=== PATIENT | female | born 1940 | race Caucasian/White ===

== ENCOUNTER 2021-03-13 09:31 | Outpatient (CLI) | payer MEDICARE, SELFPAY ==
--- NOTE | ~2021-03-13 | MR_ITS ---
EXAMINATION: MR knee LT wo con DATE: 03/13/2021 10:18 INDICATION: Internal derangement of the left knee with left knee pain. TECHNIQUE: Magnetic resonance imaging (MRI) of the left knee was performed without intravenous contra st. Sequences included coronal PD-weighted FSE, coronal PD-weighted FS FSE, sagittal T2-weighted FSE , sagittal PD-weighted FS FSE and axial PD weighted fat saturated FSE. COMPARISON: Knee radiographs dated 02/24/2021 FINDINGS: Medial compartment: Full-thickness radial tear at the body of the medial meniscus. Partial-thickness chondral ulceration and fissuring at the medial tibial plateau and along the weightbearing medial femoral condyle. There are few small foci of underlying subarticular edema at the anterior weightbearing medial femoral cond yle as well as along the medial side of the intercondylar eminence. Small marginal osteophytes are pr esent. Lateral compartment: Lateral meniscus is normal. Deep chondral fissuring at the central aspect of the lateral tibial plate au. Small region of deep chondral ulceration along the lateral side of the intercondylar eminence. Sh allow chondral ulceration and fissuring along the anterior weightbearing lateral femoral condyle. Patellofemoral compartment: Partial-thickness chondral ulceration at the patellar apical ridge and lateral facet. Additional shal low chondral ulceration along the course of the medial and lateral trochlea and intervening trochlear groove. Moderate-sized trochlear marginal osteophytes. Large marginal osteophyte arising from the lo wer pole of the patella which abuts and in contour to the articular surface of the trochlea. Ligaments and tendons: Marked thickening and mild increased signal of the anterior cruciate ligament particularly proximally but which maintains a normal angle relative to Blumensaat line and with no frankly discontinuous wit h Lexiscan ligament fibers most likely related to mucoid degeneration although partial tear cannot be excluded. There is also at least partial tear of the posterior cruciate ligament which is mildly thi ckened with increased intrasubstance signal. The medial collateral ligament and fibular collateral li gament complex are normal. Patellar tendon is normal. Minimal distal quadriceps tendinopathy with sma ll enthesophyte at its patellar insertion. The visualized medial and lateral hamstring tendons as wel l as the iliotibial band are normal. Fluid: Small left knee joint effusion. There is synovitis both at the suprapatellar pouch as well as at the anterior and posterior recesses of the knee. No loose osteochondral bodies identified. Osseous/other: No fracture or pathologic marrow replacing process. IMPRESSION: 1. Full-thickness radial tear of the body of the medial meniscus. 2. Tricompartmental osteoarthritis, mild to moderate in the medial compartment and mild in the latera l and patellofemoral compartments with moderate to high-grade chondromalacia as detailed above. 3. Prominent thickening and increased signal of the anterior cruciate ligament cyst with mucoid degen eration although could not absolutely exclude partial tear. 4. At least partial tear of the posterior cruciate ligament. Reviewed, dictated and finalized at location A. IMPRESSION: 1. Full-thickness radial tear of the body of the medial meniscus. 2. Tricompartmental osteoarthritis, mild to moderate in the medial compartment and mild in the lateral and patellofemoral compartments with moderate to high-g rade chondromalacia as detailed above. 3. Prominent thickening and increased signal of the anterior cruciate ligament cyst with mucoid degeneration although could not absolutely exclude partial tea r. 4. At least partial tear of the posterior cruciate lig
== END 2021-03-13 09:32 | disposition home or self-care (01) ==
PROVIDERS: PCP Family Medicine; Referring Provider Anesthesiology; Visit Provider Orthopaedic Surgery
DX: M17.12 Unilateral primary osteoarthritis, left knee (principal); E78.5 Hyperlipidemia, unspecified; Z01.818 Encounter for other preprocedural examination; S83.242D Other tear of medial meniscus, current injury, left knee, subsequent encounter; X58.XXXD Exposure to other specified factors, subsequent encounter
CPT/HCPCS: 73721

== ENCOUNTER 2021-03-13 13:48 | Outpatient (CLI) | payer MEDICARE, SELFPAY ==
--- NOTE | 2021-03-13 13:59 | ECG_ITS ---
Measurements Intervals [place] Rate: 83 P: 64 PA: 131 QRS: 16 QRSD: 73 T: 49 QT: 363 QTc: 428 Interpretive Statements SINUS RHYTHM INCOMPLETE RIGHT BUNDLE BRANCH BLOCK DELAYED PRECORDIAL R/S TRANSITION BASELINE ARTIFACT- I, II, III, AVR, AVF BORDERLINE ECG Electronically Signed On 03-13-2021 21:05:56 CDT by Arnulfo Torre D.O.
== END 2021-03-13 13:49 | disposition home or self-care (01) ==
PROVIDERS: PCP Family Medicine; Visit Provider Orthopaedic Surgery
DX: E78.5 Hyperlipidemia, unspecified (principal); Z01.818 Encounter for other preprocedural examination; I45.10 Unspecified right bundle-branch block
CPT/HCPCS: 73721; 93005

== ENCOUNTER → 2021-03-18 01:11 | Outpatient (CLI) | payer MEDICARE, SELFPAY ==
[2021-03-18 17:56] LABS: SARS-CoV-2 RNA PCR Negative
== END ==
PROVIDERS: PCP Family Medicine; Visit Provider Orthopaedic Surgery
DX: Z01.812 Encounter for preprocedural laboratory examination (principal); Z20.822 Contact with and (suspected) exposure to COVID-19
CPT/HCPCS: C9803; U0003; U0005

== ENCOUNTER 2021-03-21 02:25 | Day surgery (SDC) | payer MEDICARE, SELFPAY ==
[2021-03-10 12:48] VITALS: BMI 23.0
[2021-03-21] VITALS (7 sets, daily range): BP systolic 119–150; BP diastolic 53–66; PULSE 86–110; RESP 10–14; TEMP 36.3–36.8; O2SAT 99–100
[2021-03-21] MEDS: ACETAMINOPHEN 500 MG TABLET 1000 MG PO (11:53)
[2021-03-21] MEDS: LACTATED RINGERS 1,000 ML 30 ML IV CONT ×2 (12:01→14:49)
[2021-03-21] MEDS: KETOROLAC 15 MG/ML VIAL (*BKC) IV PUSH (12:07)
--- NOTE | 2021-03-21 12:52 | WPDANESEPPF ---
Anes - Initial Pre Proc Eval Procedure: Operation Date: 03/21/21 13:30 Proposed Procedures p Left Knee Arthroscopic Partial Medial Meniscectomy - Enio Castillo MD Date/Time: 03/21/21 12:52 Surgeon: Enio Castillo MD Pre Op Diagnosis: internal derangement and locking left knee Patient Data Age: 80 Gender: F Height: 1.5 m Weight: 51.6 kg Last Vital Signs Temp 36.8 C 03/21/21 12:10 Pulse 110 H 03/21/21 12:10 BP 150/53 H 03/21/21 12:10 Pulse Ox 99 03/21/21 12:10 Allergies Allergy/AdvReac Type Severity Reaction Status Date / Time cortisone Allergy Unknown KNEE Verified 03/21/21 11:46 SWELLING WITH CORTISONE INJECTIONS Sulfa (Sulfonamide Allergy Unknown Unknown Verified 03/21/21 12:15 Antibiotics) Home Medications Medication Instructions Recorded Confirmed Type levothyroxine 75 mcg capsule 75 mcg PO DAILY 02/16/21 03/21/21 History simvastatin 40 mg tablet 40 mg PO DAILY 02/16/21 03/21/21 History cholecalciferol (vitamin D3) 25 mcg PO DAILY 03/10/21 03/21/21 History cyanocobalamin (vitamin B-12) 100 mcg PO DAILY 03/10/21 03/21/21 History Patient hx anesthesia problems: none Family hx anesthesia problems: none PMFSH Past Medical History Medical History (Updated 03/20/21 @ 09:33 by Sukhjinder Daniels DO) Arthritis of left knee Hyperlipidemia Hypothyroidism Surgical History Surgical History (Updated 02/21/21 @ 11:54 by Meryl Sierra) History of carpal tunnel surgery (~2002) History of lateral meniscus repair of left knee (~2005) Family History Family History (Updated 02/16/21 @ 09:39 by Diana Tovar, RT(R)) Father Diabetes mellitus Heart disease Other Cancer Social History Social History (Updated 03/21/21 @ 12:52 by Sukhjinder Daniels DO) Smoking status: Never smoker Alcohol intake: current Drinks per week: 7 Alcohol use details: 1 drink daily Living arrangements: alone Spiritual care concerns: No Anes - Eval Final PreProcedure Day of Procedure 03/21/21 12:52 Patient weight: normal Heart: regular rate and rhythm Lungs: clear to auscultation and normal air movement Airway: Mallampati scale class II Neurological: alert and oriented Last oral intake: >/= 8 hours ASA classification: III Emergent: no Anesthetic plan: proceed Anesthesia type and monitoring: general LMA and standard monitoring Informed Consent: The patient's anesthetic plan and its attendant risks and benefits were discussed with the patient/family/POA. Questions were solicited and answers provided to the satisfaction of the patient/family/POA.
--- NOTE | 2021-03-21 12:53 | WPDHPUPDATE1 ---
History and Physical Update Update Date/Time: 03/21/21 12:53 History and Physical has been reviewed, including an updated exam of the patient. There are NO changes in the patient's condition. Risks, benefits, and alternatives have been discussed and questions answered. Patient agrees to proceed with procedure.
[2021-03-21] MEDS: ceFAZolin 2 GM/D5W 50 ML 2 GM/50 ML BAG IVPB (12:58)
[2021-03-21] MEDS: BUPIVACAINE/EPINEPHRINE 0.5% 30 ML VIAL 50 ML INFILTRATE (13:35)
--- NOTE | 2021-03-21 14:46 | SUR.PHASEI ---
Simple mask removed at 1439.
[2021-03-21] MEDS: ONDANSETRON INJ 4 MG/2 ML VIAL IV PUSH (14:53)
--- NOTE | 2021-03-21 14:57 | W.PM.PROC2 ---
Procedure Note - Detailed Date of Procedure 03/21/21 Pre-op Diagnosis internal derangement and locking left knee Post-op Diagnosis other ( 1. Complex medial meniscus tear 2. Lateral meniscus tear 3. Degenerative arthritis 4. Knee contracture with capsulitis) Procedure Performed 1. Arthroscopic partial medial and lateral meniscectomy 2. Arthroscopic cheilectomy, inferior pole patella 3. Arthroscopic partial synovectomy Surgeon Enio Castillo MD [employer] Sorter Beth Randall PA-C Anesthesia general Indications the patient complained of intermittent pain and inability to flex the knee past 60? over the past several months. States that previously she was doing well with more natural range of motion. History of arthroscopic meniscectomy many years ago. Findings Significant split complex tear of the posterior medial meniscus. Moderate tricompartmental degenerative changes. Significant anterior horn lateral meniscus tear and central tibial chondrosis. Significant scarring in the inferior patella area the anterior joint capsule. This was excised. Large inferior patella osteophyte debrided. Patella was more mobile and was inspected at this point. There was a moderate to severe synovitis. There were no other loose bodies or abnormalities. The quad extensor mechanism appeared to be quite tight; after debridement, flexion was obtained to approximately 95?. Description of Procedure The patient was identified and the surgical site confirmed and signed in the preoperative holding area. Antibiotics were started per protocol. She was brought to the operative room and transferred to the OR table. A general anesthetic was administered. Supine position with the operative lower extremity position in the leg gamboa after placement of a well padded tourniquet. The leg support was lowered and the contralateral limb was supported with a soft bolster. The knee was prepped and draped in the usual sterile fashion. A time-out was performed. The portal sites were marked and infiltrated with 0.5% Marcaine 20 mL. The limb was exsanguinated and the tourniquet inflated to 300 mL Hg. Standard inferolateral and inferomedial portals were established. Inflow was obtained with the saline pump. The camera was introduced. Diagnostic inspection of the joint was accomplished. These show the joint was quite tight. Due to the inferior osteophyte was difficult to enter the patellofemoral space. There was scarring in the retropatellar fat pad area. This appeared to be secondary to prior surgery. Excision of this tissue was accomplished. The meniscus was visualized and debrided both medially and laterally. The lateral anterior horn was quite degenerative and torn. Some of the fibers from the ACL as well as the lateral meniscus appeared to be impinging at the anterolateral joint line. After this debridement the knee was more flexible. However, the knee remained quite stiff. The inferior osteophyte on the patella was removed with the combination of the arthroscopic shaver and the punches. At this point visualization of the patellofemoral joint was facilitated significantly. There was synovitis but no loose bodies or other evidence of any lesion accountable for her contracture. Radiofrequency Wand was also used to assist in the debridement and stabilization of loose tissues. The arthroscopic instruments were removed. The tourniquet released and wounds closed with subcutaneous 3-0 Monocryl absorbable suture. Steri strips and a sterile dressing were applied. A light elastic wrap was placed. The patient was extubated and brought to the recovery room in stable condition. Estimated Blood Loss -10.0 Pathology none sent Complications No immediate complications Condition stable Disposition PACU
== END 2021-03-21 16:01 | disposition home or self-care (01) ==
PROVIDERS: PCP Family Medicine; Visit Provider Orthopaedic Surgery
PROC: (CPT 29870; principal; 2021-03-21 13:30)
DX: M23.332 Other meniscus derangements, other medial meniscus, left knee (principal); M23.342 Other meniscus derangements, anterior horn of lateral meniscus, left knee; M65.862 Other synovitis and tenosynovitis, left lower leg; M25.762 Osteophyte, left knee; M76.892 Other specified enthesopathies of left lower limb, excluding foot; M17.12 Unilateral primary osteoarthritis, left knee; E78.5 Hyperlipidemia, unspecified; E03.9 Hypothyroidism, unspecified
CPT/HCPCS: 29880; A9270; C9803; J0690; J1885; J2370; J2405; J2704; J7120; U0003; U0005

== ENCOUNTER 2021-05-26 15:15 | Emergency (ER) | payer MEDICARE, SELFPAY ==
--- NOTE | 2021-05-26 15:21 | ED.ARRPALP ---
HPI - Arrhythmia/Palpitations General Chief Complaint: Arrhythmia/Palpitations Stated Complaint: RAPID HEART RATE Time Seen by Provider: 05/26/21 15:21 Source: patient, family and RN notes reviewed History of Present Illness HPI narrative: Patient is a 80-year-old female who presents the urgent care with her [id number] with complaints of palpitations/arrhythmia. [id number] states that it started around lunchtime this afternoon after arguing with her son and drinking alcohol. Patient states that she has had palpitations in the past but it has been contributed to anxiety . Patient states she does not take anything for arrhythmias or anxiety. Patient states that she used her dowahprq-il-zlx's apple watch which told her she had arrhythmia. Patient denies of any chest pain, shortness of breath or nausea/vomiting. Patient appears anxious but otherwise no acute distress noted. Patient and dckdznja-hw-dip aware of the plan of care. Some parts of this dictation were generated by voice recognition software and may contain typographical and/or grammatical inaccuracies. Related Data Home Medications Medication Instructions Recorded Confirmed levothyroxine 75 mcg capsule 75 mcg PO DAILY 02/16/21 04/05/21 simvastatin 40 mg tablet 40 mg PO DAILY 02/16/21 04/05/21 cholecalciferol (vitamin D3) 25 mcg PO DAILY 03/10/21 04/05/21 cyanocobalamin (vitamin B-12) 100 mcg PO DAILY 03/10/21 04/05/21 Allergies Allergy/AdvReac Type Severity Reaction Status Date / Time cortisone Allergy Unknown KNEE Verified 03/21/21 11:46 SWELLING WITH CORTISONE INJECTIONS Sulfa (Sulfonamide Allergy Unknown Unknown Verified 03/21/21 12:15 Antibiotics) Review of Systems Review of Systems: CONSTITUTIONAL: Denies fever, chills, or sweats. EYES: Denies visual changes, redness, or discharge. ENT: Denies rhinorrhea, congestion, sore throat, or otalgia. CARDIOVASCULAR: Reports of palpitations/rapid heart rate RESPIRATORY: Denies cough or dyspnea. GASTROINTESTINAL: Denies abdominal pain, nausea, vomiting, or diarrhea. GENITOURINARY: Denies dysuria or hematuria. SKIN: Denies rash or itching. MUSCULOSKELETAL: Denies back pain, joint pain, or myalgia. NEUROLOGIC: Denies headache, numbness, or weakness. All other systems reviewed are negative, except as documented in HPI. [facility] Past Medical History Medical History Arthritis of left knee Hyperlipidemia Hypothyroidism Surgical History Surgical History History of carpal tunnel surgery (~2002) History of lateral meniscus repair of left knee (~2005) Family History Family History Father Diabetes mellitus Heart disease Other Cancer Social History Social History Smoking status: Never smoker Alcohol intake: current Drinks per week: 7 Alcohol use details: 1 drink daily Spiritual care concerns: No Comments At the time of my signature, I reviewed and agree with the nursing past medical, surgical, social, and family history. There is no relevant family history pertinent to the patient complaint. Exam Narrative: GENERAL: This is a well-nourished, well-developed patient, in no apparent distress. HEAD: normocephalic, atraumatic. EYES: PERRL. Sclera clear/white. Vision is grossly intact. EARS: External ears normal NOSE: External nose normal with no obvious nasal discharge, nares without redness, no rhinorrhea. THROAT: Mucous membranes moist NECK: Neck supple CARDIOVASCULAR: Atrial fibrillation RESPIRATORY: Clear to auscultation. Breath sounds equal bilaterally. No wheezes, rales, or rhonchi. SKIN: warm, intact with no suspicious lesions or rash, good texture and turgor. NEURO: awake, alert, and oriented to person, place and time. There were no obvious
[2021-05-26 15:39] VITALS: BP 112/86; PULSE 179; RESP 16; TEMP 36.6; O2SAT 99
--- NOTE | 2021-05-26 15:41 | ECG_ITS ---
Measurements Intervals [place] Rate: 179 P: [place]: 0 QRS: 21 QRSD: 72 T: 56 QT: 235 QTc: 406 Interpretive Statements ATRIAL FIBRILLATION WITH RAPID VENTRICULAR RESPONSE INCOMPLETE RIGHT BUNDLE BRANCH BLOCK NONSPECIFIC ST & T-WAVE ABNORMALITY- INF/LAT LEADS BASELINE ARTIFACT- I, II ABNORMAL ECG Electronically Signed On 05-26-2021 20:43:53 CDT by Arnulfo Torre D.O.
== END 2021-05-26 15:45 | disposition short-term general hospital (02) ==
PROVIDERS: Emergency Provider Nurse Practitioner Family; PCP Family Medicine
DX: I48.91 Unspecified atrial fibrillation (principal); E78.5 Hyperlipidemia, unspecified; E03.9 Hypothyroidism, unspecified; M17.12 Unilateral primary osteoarthritis, left knee; E78.00 Pure hypercholesterolemia, unspecified
CPT/HCPCS: 93005; 99213; G0463

== ENCOUNTER 2021-05-26 15:55 | Observation (INO) | payer MEDICARE, SELFPAY ==
[2021-05-26] VITALS (17 sets, daily range): BP systolic 96–146; BP diastolic 50–110; PULSE 75–175; RESP 10–23; TEMP 36.3–36.7; O2SAT 98–100; BMI 21.9
--- NOTE | ~2021-05-26 | XR_ITS ---
EXAMINATION: XR chest 1V portable DATE: 05/26/2021 16:46 INDICATION: Palpitations. TECHNIQUE: A single frontal view of the chest was obtained. COMPARISON: Chest single view 08/25/2009 FINDINGS: The chest demonstrates clear lungs without pneumonia, pleural effusion, or pneumothorax. Th e heart size is normal. IMPRESSION: 1. No acute cardiopulmonary disease. Reviewed, dictated and finalized at location B.
--- NOTE | 2021-05-26 16:01 | ECG_ITS ---
Measurements Intervals [place] Rate: 153 P: [place]: 0 QRS: 13 QRSD: 68 T: 33 QT: 257 QTc: 410 Interpretive Statements ATRIAL FIBRILLATION WITH RAPID VENTRICULAR RESPONSE INCOMPLETE RIGHT BUNDLE BRANCH BLOCK ABNORMAL ECG Electronically Signed On 05-26-2021 20:41:40 CDT by Arnulfo Torre D.O.
--- NOTE | 2021-05-26 16:29 | ED.ARRPALP ---
HPI - Arrhythmia/Palpitations General Chief Complaint: Arrhythmia/Palpitations Stated Complaint: high heart rate Time Seen by Provider: 05/26/21 16:29 Source: patient and family Mode of arrival: ambulatory Limitations: no limitations History of Present Illness HPI narrative: The patient is a 80-year-old female with a history of hypothyroidism and hyperlipidemia who presents for evaluation of palpitations. Patient reports the palpitations began around 1 PM when she was having an argument with her son. She states that she has had significant stressors in her life recently and she typically notices palpitations and a fast heart rate whenever she is stressed. Patient states that she went to an urgent care due to the palpitations, and she was told she had an abnormal heartbeat and referred to this facility. Patient denies any current chest pain or shortness of breath. She reports leg swelling or calf pain. No history of Covid infection. No history of coagulopathy. Patient does have a history of knee replacement surgery in February, she states an EKG at that time was normal. No known history of atrial fibrillation. Patient states the palpitations often come and go. She states that she has had this happen numerous times before but has had normal EKGs per her report. Patient states she has been compliant with her thyroid medication, denies recent changes to this medication. She states that she drinks 2 glasses of wine nightly. Related Data Home Medications Medication Instructions Recorded Confirmed levothyroxine 75 mcg capsule 75 mcg PO DAILY 02/16/21 04/05/21 simvastatin 40 mg tablet 40 mg PO DAILY 02/16/21 04/05/21 cholecalciferol (vitamin D3) 25 mcg PO DAILY 03/10/21 04/05/21 cyanocobalamin (vitamin B-12) 100 mcg PO DAILY 03/10/21 04/05/21 Allergies Allergy/AdvReac Type Severity Reaction Status Date / Time cortisone Allergy Unknown KNEE Verified 03/21/21 11:46 SWELLING WITH CORTISONE INJECTIONS Sulfa (Sulfonamide Allergy Unknown Unknown Verified 03/21/21 12:15 Antibiotics) Review of Systems Review of Systems: CONSTITUTIONAL: Denies fever, chills, or sweats. EYES: Denies visual changes, redness, or discharge. ENT: Denies rhinorrhea, congestion, sore throat, or otalgia. CARDIOVASCULAR: Denies chest pain, reports palpitations, denies leg edema RESPIRATORY: Denies cough or dyspnea. GASTROINTESTINAL: Denies abdominal pain, nausea, vomiting, or diarrhea. GENITOURINARY: Denies dysuria or hematuria. SKIN: Denies rash or itching. MUSCULOSKELETAL: Denies back pain, joint pain, or myalgia. NEUROLOGIC: Denies headache, numbness, or weakness. PSYCHIATRIC: Reports anxiety PMFSH Past Medical History Medical History Arthritis of left knee Hyperlipidemia Hypothyroidism Surgical History Surgical History History of carpal tunnel surgery (~2002) History of lateral meniscus repair of left knee (~2005) Family History Family History Father Diabetes mellitus Heart disease Other Cancer Social History Social History Smoking status: Never smoker Alcohol intake: current Drinks per week: 7 Alcohol use details: 1 drink daily Spiritual care concerns: No Exam Narrative: GENERAL: Awake, alert, conversant HEAD: Normocephalic, atraumatic. EYES: PERRLA and EOMI. ENT: Nares clear, no rhinorrhea or epistaxis. Mucous membranes moist. NECK: Supple. CHEST: No respiratory distress, breathing even and non labored HEART: Tachycardic, irregular rhythm ABDOMEN:Non distended, non tender EXTREMITIES: Normal range of motion. No edema. SKIN: Warm, dry, no rash. NEURO:No focal deficits. Alert and oriented x3 Course Vital Signs Vital signs: Vital Signs Temperature 36.7 C 05/26/21 16:10
[2021-05-26 16:33] LABS: Basophils Percent Auto 0.5 % (0.2-1.2); Eosinophils Absolute Auto 0.1 K/mm3 (0-0.3); Eosinophils Percent Auto 0.7 % (0-4.4); Hemoglobin 14.9 g/dL (12.0-15.0); Immature Granulocyte Absolute 0.03 K/mm3 (0.00-0.031); Immature Granulocyte Percent A 0.4 % (0-0.5); Lymphocytes Absolute Auto 1.98 K/mm3 (0.9-3.2); Lymphocytes Percent Auto 23.2 % (18.3-44.2); Mean Corpuscular HGB Conc 33.1 g/dl (32-36); Mean Corpuscular Hemoglobin 33.9 pg (26-34); Mean Corpuscular Volume 102.3 fl (80-100); Mean Platelet Volume 9.1 fl (7.4-10.4); Monocytes Absolute Auto 0.7 K/mm3 (0.1-0.6); Monocytes Percent Auto 8.7 % (2.6-8.5); Neutrophils Absolute Auto 5.7 K/mm3 (1.3-6.7); Neutrophils Percent Auto 66.5 % (45.5-73.1); Platelet Count Result 234 k/mm3 (150-375); Red Cell Distribution Width 12.9 % (11.5-14.5); White Blood Count 8.5 K/mm3 (4.5-10.0)
[2021-05-26 16:41] LABS: INR 0.8; Prothrombin Time 10.7 Seconds (11.1-14.7)
[2021-05-26 16:51] LABS: Anion Gap 9 mmol/L (8-16); Blood Urea Nitrogen 16 mg/dL (7-17); Calcium 9.6 mg/dL (8.4-10.2); Carbon Dioxide 23 mmol/L (22-30); Chloride 104 mmol/L (98-107); Estimated Glomerular Filt Rate > 60; Glucose 106 mg/dL (65-110); Potassium 3.9 mmol/L (3.4-5.0); Sodium 136 mmol/L (137-145)
[2021-05-26] MEDS: ASPIRIN 81 MG CHEWABLE TABLET 324 MG PO (16:55)
[2021-05-26] MEDS: dilTIAZem HCl INJ 25 MG/5 ML VIAL 10 MG IV PUSH (17:13)
[2021-05-26] MEDS: SODIUM CHLORIDE 0.9% IV 1,000 ML 999 ML IV CONT (17:15)
[2021-05-26 17:24] LABS: Troponin I 0.035 ng/mL (0.000-0.034)
[2021-05-26] MEDS: MAGNESIUM SULF 2 GM/WATER 50ML 2 GM/50 ML BAG IVPB (18:04)
[2021-05-26 18:14] LABS: Thyroid Stimulating Hormone 0.459 uIU/mL (0.465-4.680)
[2021-05-26 18:58] LABS: NT Pro B Type Natriuretic Pept 263 pg/mL (5-100)
[2021-05-26] MEDS: ENOXAPARIN 60 MG/0.6 ML SYRINGE 52 MG SUB-Q (19:00)
[2021-05-26 20:21] LABS: Troponin I 0.045 ng/mL (0.000-0.034)
--- NOTE | 2021-05-26 20:29 | ADMGEN ---
This patient, Kathie Ruff, was admitted to IMU Room 203-01 on 05/26/21 at 2001. Patient/family oriented to hospital policies and general routines including ID bracelet, bed and alarms, visiting hours, pain management, procedures, bathroom and other care routines, personal items, smoking policy, room service/diet, and visiting hours. Information on how to activate the Rapid Response Team has been discussed. Patient/Family are encouraged to report perceived risks to care and to ask questions if they do not understand what they are told or what they should do.
--- NOTE | 2021-05-26 20:40 | PM.IMHP ---
H&P: HPI History of Present Illness Date/Time: 05/26/21 20:40 Chief Complaint: PULSATIONS Narrative: THIS IS A 80-YEAR-OLD FEMALE WITH PAST MEDICAL HISTORY SIGNIFICANT FOR HYPOTHYROIDISM, DYSLIPIDEMIA. PATIENT PRESENTED TODAY TO THE EMERGENCY ROOM AFTER SHE NOTICED AT AROUND NOON TIME PULSATILE SENSATION OF HER NECK ON THE LEFT SIDE HER [id number] CHECKED HER PULSE AND SHE HAD A HEART RATE OF 170 IMMEDIATELY THEY CONTACTED SOME FRIENDS THAT WORK IN HEALTHCARE [employer] AND SUGGESTED THAT SHE GOES TO THE EMERGENCY ROOM PATIENT WANTED TO GO TO URGENT CARE 1ST ONCE SHE GOT THERE SHE WAS REDIRECTED TO EMERGENCY ROOM. PATIENT STATES THAT SHE HAS BEEN IN A LOT OF STRESS HER SON IS END-STAGE HEPATIC CIRRHOSIS AND IS IN THE HOSPITAL. UPON ARRIVAL TO THE EMERGENCY ROOM SHE WAS FOUND TO HAVE ATRIAL FIBRILLATION WITH RAPID VENTRICULAR RESPONSE SHE DENIED ANY CHEST PAIN SHORTNESS OF BREATH COUGH SPUTUM PRODUCTION LIGHTHEADEDNESS NAUSEA VOMITING DIZZINESS DIAPHORESIS FEVERS CHILLS OR RIGORS NO WEIGHT LOSS OR WEIGHT GAIN NO PND NO ORTHOPNEA NO LEG SWELLING NO CHANGES IN HER VISION. SHE HAS BEEN IN HER USUAL STATE OF HEALTH UP UNTIL THESE. HOWEVER STATES THAT SHE HAS HAD SOME PANIC ATTACKS RELATED TO CONCERNS ABOUT HER SON'S HEALTH. PRELIMINARY WORKUP IN EMERGENCY ROOM WAS SIGNIFICANT FOR ECG WHICH SHOWED ATRIAL FIBRILLATION WITH RAPID VENTRICULAR RESPONSE. TROPONINS SLIGHTLY ELEVATED WELL. Review of Systems Review of Systems: PULSATILE SENSATION OF THE NECK Constitutional: Constitutional: Denies chills, Denies fatigue, Denies fever(s), Denies lethargy, Denies poor appetite and Denies weakness Eyes: Eyes: Denies change in vision ENT: Denies dysphagia, Denies dizziness, Denies nasal congestion, Denies nasal discharge, Denies nasal obstruction, Denies neck pain and Denies odynophagia Comments: NECK PULSATION Cardiovascular: Cardiovascular: Denies chest pain, Denies chest pain at rest, Denies chest pain with activity, Denies diaphoresis, Denies claudication, Denies radiating jaw, neck or arm pain, Denies palpitations, Denies dyspnea, Denies dyspnea on exertion and Denies orthopnea Respiratory: Respiratory: Denies cough and Denies dyspnea Gastrointestinal: Gastrointestinal: Denies abdominal pain, Denies dyspepsia, Denies heartburn, Denies diarrhea, Denies nausea and Denies vomiting Genitourinary: Genitourinary: Reports no additional female genitourinary complaints Musculoskeletal: Musculoskeletal: Reports no additional musculoskeletal complaints Integumentary/Breasts: Skin/Breast: Reports system reviewed and no additional complaints, except as docu Neurologic: Reports system reviewed and no additional complaints, except as documented Psychiatric: Psychiatric: Reports panic attacks Endocrine: Endocrine: Reports no additional endocrine complaints Hematologic/Lymphatic: Hematologic/Lymphatic: Reports no additional hematologic/lymphatic complaints Allergic/Immunologic: Allergic/Immunologic: Reports no additional allergic/immunologic complaints PMFSH Past Medical History Medical History (Updated 05/26/21 @ 21:06 by Callum Hough MD) Arthritis of left knee Hyperlipidemia Hypothyroidism Surgical History Surgical History History of carpal tunnel surgery (~2002) History of lateral meniscus repair of left knee (~2005) Family History Family History Father Diabetes mellitus Heart disease Coronary heart disease Mother Cancer Colon cancer Sibling Coronary heart disease Hypertension Sibling Coronary heart disease Hypertension Sibling Breast cancer Hypertension Son Alcohol abuse Liver failure Hypertension Daughter Hypertension Social History Social History Smoking status: Never smoker Second hand tobacco smoke exposure: No Alcohol intake: cur
--- NOTE | 2021-05-26 21:10 | ECG_ITS ---
Measurements Intervals [place] Rate: 80 P: 71 IL: 134 QRS: 10 QRSD: 85 T: 34 QT: 358 QTc: 414 Interpretive Statements SINUS RHYTHM INCOMPLETE RIGHT BUNDLE BRANCH BLOCK BORDERLINE T WAVE ABNORMALITY- DIFFUSE LEADS BORDERLINE ECG Electronically Signed On 05-27-2021 6:49:49 CDT by Arnulfo Torre D.O.
[2021-05-26 21:47] LABS: Troponin I 0.046 ng/mL (0.000-0.034)
[2021-05-26 23:22] LABS: Troponin I 0.041 ng/mL (0.000-0.034)
[2021-05-27] VITALS (8 sets, daily range): BP systolic 101–122; BP diastolic 58–68; PULSE 65–99; RESP 15–18; TEMP 36.1–36.3; O2SAT 95–100
--- NOTE | 2021-05-27 | ECHO_ITS ---
Patient Info Name: Kathie Ruff Age: 80 years : 1940 Gender: Female Ht: 59 in Wt: 108 lbs BSA: 1.43 m2 HR: 79 bpm BP: 105 / 58 mmHg Technical Quality: Good Exam Date: 05/27/2021 7:48 AM Exam Location: [facility] Patient Status: Outpatient Admit Date: 05/26/2021 Staff Ordering Physician: Sarah Molina MD Foot Caster: Savannah Breaux RDCS Attending Provider: Nanci Houser PA-C Referring Physician: Jesse LANDRY; Exam Type: CA echo doppler color flow Study Info Complete two-dimensional, color flow and Doppler transthoracic echocardiogram is performed. Summary 1. Complete two-dimensional, color flow and Doppler transthoracic echocardiogram is performed. 2. Left ventricular chamber dimension is normal. 3. Left ventricular systolic function is normal, estimated at >70%. 4. There is no increased left ventricular wall thickness. 5. The left ventricular diastolic function is grade I diastolic dysfunction. 6. Right ventricular chamber dimension is normal. 7. No significant valvular heart disease. Left Ventricle Left ventricular chamber dimension is normal. Left ventricular systolic function is normal, estimated at >70%. There is no increased left ventricular wall thickness. Left ventricular septal wall motion is normal. The left ventricular diastolic function is grade I diastolic dysfunction. Right Ventricle Right ventricular chamber dimension is normal. Right ventricular systolic function is normal. Left Atria Left atrial chamber dimension is normal. Right Atria Right atrial chamber dimension is normal. Aortic Valve The aortic valve is trileaflet. There is no aortic valve sclerosis. There is no aortic valve stenosis. There is no aortic valve regurgitation. Pulmonic Valve The pulmonic valve is not well visualized. There is no pulmonic valve stenosis. There is no pulmonic regurgitation. Mitral Valve The mitral valve has normal leaflets. There is no mitral valve stenosis. There is no mitral valve regurgitation. Tricuspid Valve The tricuspid valve leaflets are normal. There is no significant tricuspid valve stenosis. There is no tricuspid valve regurgitation. Pericardium/Pleural The pericardium appears normal. There is no pericardial effusion. Inferior Vena Cava Normal inferior vena cava with >50% collapse upon inspiration consistent with normal right atrial pressure, 5 mmHg. Aorta The aortic root size at the sinus of Valsalva is normal. The prox ascending aorta size is normal. Left Ventricular Outflow Tract Name Value Normal LVOT 2D LVOT Diameter 1.9 cm LVOT Doppler LVOT Peak Gradient 3 mmHg LVOT Mean Gradient 1 mmHg LVOT VTI 17 cm LVOT VTI/AV VTI Ratio 0.9 LVOT Stroke Volume 47 ml LVOT CO 3.8 l/min LVOT CI 2.7 l/min/m2 Pulmonic Valve Name
[2021-05-27] MEDS: LEVOTHYROXINE SODIUM 75 MCG TABLET PO (06:04)
[2021-05-27] MEDS: CHOLECALCIFEROL 1,000 UNITS TABLET 1000 UNITS PO (09:18)
[2021-05-27] MEDS: SIMVASTATIN 20 MG TABLET 40 MG PO (09:18)
[2021-05-27] MEDS: ENOXAPARIN 60 MG/0.6 ML SYRINGE 52 MG SUB-Q (09:18)
[2021-05-27 10:29] LABS: Free T4 Free Thyroxine 1.27 ng/mL (0.78-2.19)
--- NOTE | 2021-05-27 11:46 | PC.NURSE ---
Return phone call made to Navjot (Son). Update given and all questions answered per Navjot. Will continue to monitor.
--- NOTE | 2021-05-27 11:49 | PM.DS ---
DS: Admitting Diagnosis Admitting Diagnosis new onset afib rvr DS: Discharge Diagnosis Discharge Diagnosis (1) Atrial fibrillation with rapid ventricular response: Code(s): I48.91 - Unspecified atrial fibrillation Status: Acute (2) Elevated troponin: Code(s): R77.8 - Other specified abnormalities of plasma proteins Status: Acute (3) Hyperlipidemia: Code(s): E78.5 - Hyperlipidemia, unspecified Status: Acute (4) Hypothyroidism: Code(s): E03.9 - Hypothyroidism, unspecified Status: Inactive (5) Arthritis of left knee: Code(s): M17.12 - Unilateral primary osteoarthritis, left knee Status: Acute DS: Summary Hospital Course Hospital Course: Date of service May 27, 2021 Patient is a 80-year-old female who presented emergency room for palpitations and tachycardia. Vitals in the ER were temperature 36? 0.7? C, pulse 172, respiratory rate 18, blood pressure 134/68, pulse ox 99 on room air. CBC and BMP normal. Chest x-ray negative. EKG showed AFib RVR with a rate of [address] changes. Troponins were 0.035--> 0.045--> 0.046--> 0.041. BNP 263. TSH slightly low but T4 normal. Patient was given diltiazem and Lovenox with rate improvement. She was admitted to the hospitalist service for observation. She was put on a diltiazem drip which converted her to normal sinus rhythm. She had no signs and symptoms of stroke. The next day I saw her and she was doing well. She had no chest pain, palpitations or any signs or symptoms of infection. She was taken off the diltiazem drip and Cardiology recommend metoprolol. Echocardiogram was done which did not show any significant valvular disease. Her troponins were likely elevated due to demand and not indicative of ACS. Cardiology plans to follow-up with her in the outpatient setting for further evaluation. She was started on Eliquis for stroke prevention. Day of discharge the patient was feeling back to her normal and ready to go. She was educated about the worrisome signs and symptoms to come back to the emergency room for and was discharged stable condition to follow-up with the [facility]. Status at Discharge Functional status at discharge: independent ambulation Overall status at discharge: patient is back to baseline Time Spent with Patient Time attestation: Total time spent providing and/or coordinating discharge services:38 min Time spent: Greater than 30 minutes Exam Narrative: General: Well developed well nourished patient in NAD HEENT: normocephalic Neck: supple Neuro: Alert and oriented x4 CV:RRR on exam with a rate of 80. Telemetry showed AFib RVR the night before up to 182 Resp:CTA Abd: Soft, non distended. No pain to palpation. Positive bowel sounds Extremities: No swelling, erythema, or pain to palpation. DS: Data Data Completed and Pending Labs on day of discharge: Labs from last 24 hours 05/27/21 05/26/21 05/26/21 08:04 22:35 21:04 WBC RBC Hgb Hct MCV MCH MCHC RDW Plt Count MPV Immature Gran % (Auto) Neut % (Auto) Lymph % (Auto) Peach % (Auto) Eos % (Auto) Baso % (Auto) Lymph # (Auto) Peach # (Auto) Eos # (Auto) Baso # (Auto) Abs Immat Gran (auto) Absolute Neuts (auto) Absolute Nucleated RBC Nucleated RBC % PT INR APTT Sodium Potassium Chloride Carbon Dioxide Anion Gap BUN Creatinine Estim Creat Clear Calc Estimated GFR Glucose Calcium Troponin I 0.041 H* 0.046 H* NT-Pro-B Natriuret Pep TSH Free T4 1.27 05/26/21 05/26/21 05/26/21 19:16 16:21 16:21 WBC RBC Hgb Hct MCV MCH MCHC RDW Plt Count MPV Immature Gran % (Auto) Neut % (Auto) Lymph % (Auto) Peach % (Auto) Eos % (Auto) Baso % (Auto) Lymph # (Auto) Peach # (Auto) Eos # (Auto) Baso # (Auto) Abs Imm
--- NOTE | 2021-05-27 11:57 | PM.CNCAR ---
Assessment and Plan Additional Plan Paroxysmal AF, converted to SR, [id number] score of 3, plan Apixaban, start metoprolol 25 mg BID, TTE and f/u in cardiology clinic History of Present Illness History of Present Illness Consult date/time: 05/27/21 11:57 Consult reason: atrial fibrillation Reason For Visit: A Fib w/RVR Narrative: Patient presented yesterday with palpitations, mild, intermittent, no precipitating or relieving factors, admitted to ER and noted ot have AF and HR in 170s. She had no chest pain or SOB. She was started on diltiazem infusion and converted back to SR at night yesterday. Today she is feeling well and backto baseline Review of Systems Review of Systems: All systems reviewed & are unremarkable except as noted in HPI and below PMFSH Past Medical History Medical History (Updated 05/27/21 @ 00:00 by Background Daemon) Arthritis of left knee Hyperlipidemia Hypothyroidism Surgical History Surgical History History of carpal tunnel surgery (~2002) History of lateral meniscus repair of left knee (~2005) Family History Family History Father Diabetes mellitus Heart disease Coronary heart disease Mother Cancer Colon cancer Sibling Coronary heart disease Hypertension Sibling Coronary heart disease Hypertension Sibling Breast cancer Hypertension Son Alcohol abuse Liver failure Hypertension Daughter Hypertension Social History Social History Smoking status: Never smoker Second hand tobacco smoke exposure: No Alcohol intake: current Drinks per week: 10 Alcohol use details: 1 drink daily Substance use: never Substance use type: does not use Gender identity (if verbalized by the patient): Female Sexual Orientation (if Verbalized by the Patient): Straight or Heterosexual Spiritual care concerns: No Meds Home Medications and Allergies Home Medications Medication Instructions Recorded Confirmed Type levothyroxine 75 mcg capsule 75 mcg PO DAILY 02/16/21 05/26/21 History simvastatin 40 mg tablet 40 mg PO DAILY 02/16/21 05/26/21 History cholecalciferol (vitamin D3) 25 mcg PO DAILY 03/10/21 05/26/21 History cyanocobalamin (vitamin B-12) 100 mcg PO DAILY 03/10/21 05/26/21 History loratadine [Allergy Relief 10 mg PO DAILY PRN 05/26/21 05/26/21 History (loratadine)] Allergies Allergy/AdvReac Type Severity Reaction Status Date / Time cortisone Allergy Unknown KNEE Verified 05/26/21 21:01 SWELLING WITH CORTISONE INJECTIONS Sulfa (Sulfonamide Allergy Unknown Unknown Verified 05/26/21 21:01 Antibiotics) Vital Signs Vital Signs - 24 hr 05/26/21 16:10 05/26/21 16:32 05/26/21 17:16 Temperature 36.7 C Pulse Rate 172 H 175 H 118 H Respiratory Rate 18 16 14 Blood Pressure 134/68 146/110 H 117/78 Pulse Oximetry 99 100 99 05/26/21 17:17 05/26/21 17:31 05/26/21 17:47 Temperature Pulse Rate 127 H 128 H 116 H Respiratory Rate 17 12 10 L Blood Pressure Pulse Oximetry 98 100 05/26/21 18:00 05/26/21 18:15 05/26/21 18:25 Temperature Pulse Rate 134 H 125 H 117 H Respiratory Rate 23 H 16 13 Blood Pressure 100/76 Pulse Oximetry 98 99 05/26/21 18:31 05/26/21 18:32 05/26/21 18:45 Temperature Pulse Rate 111 H 101 H 105 H Respiratory Rate 11 L 12 12 Blood Pressure 96/63 L Pulse Oximetry 98 98 98 05/26/21 20:07 05/26/21 20:10 05/26/21 22:00 Temperature 36.5 C 36.7 C Pulse Rate 88 91 78 Respiratory Rate 16 16 Blood Pressure 110/61 103/64 Pulse Oximetry 98 98 05/26/21 23:13 05/26/21 23:38 05/27/21 00:00 Temperature 36.3 C L Pulse Rate 75 77 74 Respiratory Rate 16 16 Blood Pressure 101/50 L Pulse Oximetry 99 98 05/27/21 02:00 05/27/21 04:00 05/27/21 05:36 Temperature 36.2 C L Pulse Rate 67 68
== END 2021-05-27 14:30 | disposition home or self-care (01) ==
LOC: ANHED 17:36 → ANHIMU 19:26
PROVIDERS: Physician Assistant; Admitting Provider Internal Medicine Critical Care Medicine; Emergency Provider Emergency Medicine; PCP Family Medicine; Visit Provider Internal Medicine
DX: I48.91 Unspecified atrial fibrillation (principal); R77.8 Other specified abnormalities of plasma proteins; R00.2 Palpitations; E78.5 Hyperlipidemia, unspecified; E03.9 Hypothyroidism, unspecified; M17.12 Unilateral primary osteoarthritis, left knee
CPT/HCPCS: 36415; 71045; 80048; 83880; 84439; 84443; 84484; 85025; 85610; 85730; 93005; 93306; 96361; 96365; 96372; 96375; 99213; 99285; A9270; G0378; G0463; J1650; J3475; J7030

== ENCOUNTER 2021-06-24 23:17 | Emergency (ER) | payer MEDICARE, SELFPAY ==
[2021-06-24 22:53] VITALS: BP 104/68; PULSE 72; RESP 18; TEMP 36.7; O2SAT 97
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
[2021-06-25] MEDS: TETANUS,DIPHTHERIA,AC PERTUSSIS ADULT (0.5 ML) BOOSTRIX IM (00:13)
[2021-06-25] MEDS: AMPICILLIN SULB 3 GM/NS 100 ML 3 GM/100 ML VIAL IVPB (00:13)
[2021-06-25] MEDS: RABIES IMMUNE GLOBULIN/PF 1,500 UNITS/5 ML VIAL 1100 UNITS IM (00:14)
[2021-06-25] MEDS: RABIES VACCINE (RABAVERT) 2.5 UNITS VIAL IM (00:15)
[2021-06-25 02:15] VITALS: BP 122/55; PULSE 71; RESP 20; TEMP 36.7; O2SAT 99
== END 2021-06-25 02:07 | disposition home or self-care (01) ==
PROVIDERS: Emergency Provider General Practice; PCP Family Medicine
DX: S81.851A Open bite, right lower leg, initial encounter (principal); Z23 Encounter for immunization; I48.91 Unspecified atrial fibrillation; Z79.01 Long term (current) use of anticoagulants; M17.12 Unilateral primary osteoarthritis, left knee; E78.5 Hyperlipidemia, unspecified; E03.9 Hypothyroidism, unspecified; W55.51XA Bitten by raccoon, initial encounter
CPT/HCPCS: 90471; 90472; 90675; 90715; 96365; 96372; 99284; 90375; J0295

== ENCOUNTER 2021-06-28 09:25 | Outpatient (CLI) | payer MEDICARE, SELFPAY ==
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
== END 2021-06-28 09:26 | disposition home or self-care (01) ==
PROVIDERS: PCP Family Medicine; Visit Provider Pediatrics
DX: T14.8XXA Other injury of unspecified body region, initial encounter (principal); W55.51XA Bitten by raccoon, initial encounter
CPT/HCPCS: 90471; 90675

== ENCOUNTER 2021-07-02 07:25 | Emergency (ER) | payer MEDICARE, SELFPAY ==
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
[2021-07-02 07:40] VITALS: BP 130/70; PULSE 78; RESP 16; TEMP 36.8; O2SAT 100
[2021-07-02] MEDS: RABIES VACCINE (RABAVERT) 2.5 UNITS VIAL IM (08:08)
== END 2021-07-02 08:17 | disposition home or self-care (01) ==
LOC: ANHED 07:44
PROVIDERS: Emergency Provider Emergency Medicine; PCP Family Medicine
DX: S81.851A Open bite, right lower leg, initial encounter (principal); Z29.14 Encounter for prophylactic rabies immune globulin; I48.91 Unspecified atrial fibrillation; E78.5 Hyperlipidemia, unspecified; E03.9 Hypothyroidism, unspecified; W55.51XA Bitten by raccoon, initial encounter
CPT/HCPCS: 90471; 90675; 99282

== ENCOUNTER 2021-07-09 07:18 | Emergency (ER) | payer MEDICARE, SELFPAY ==
[2021-07-09 07:36] VITALS: BP 128/36; PULSE 71; RESP 16; TEMP 37.1; O2SAT 100
[2021-07-09] MEDS: RABIES VACCINE (RABAVERT) 2.5 UNITS VIAL IM (09:44)
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
[2021-07-09 10:09] VITALS: RESP 16
== END 2021-07-09 10:05 | disposition home or self-care (01) ==
PROVIDERS: Emergency Provider Emergency Medicine; PCP Family Medicine
DX: Z29.14 Encounter for prophylactic rabies immune globulin (principal); S81.851A Open bite, right lower leg, initial encounter; M17.12 Unilateral primary osteoarthritis, left knee; I48.91 Unspecified atrial fibrillation; E78.5 Hyperlipidemia, unspecified; E03.9 Hypothyroidism, unspecified; Z23 Encounter for immunization; W55.51XA Bitten by raccoon, initial encounter
CPT/HCPCS: 90471; 90675; 99282

== ENCOUNTER 2022-12-20 10:31 | Emergency (ER) | payer MEDICARE, SELFPAY ==
[2022-12-20 10:42] VITALS: BP 152/80; PULSE 76; RESP 18; TEMP 36.8; O2SAT 100
--- NOTE | 2022-12-20 11:00 | ED.UPPEXIN ---
HPI - Extremity Injury (Upper) General Chief Complaint: Extremity Injury, Upper Stated Complaint: SHOULDER/ARM PAIN Time Seen by Provider: 12/20/22 11:02 Source: patient and RN notes reviewed Mode of arrival: ambulatory Limitations: no limitations History of Present Illness HPI narrative: 82-year-old female presents concern for 2 day history of left shoulder pain that radiates down the left arm and up to the left side of the neck. She denies any injury or trauma. She reports history of something similar on the right side several years ago. She reports she can find a presents chin of comfort, pain is exacerbated by moving the neck or the arm. She reports a feeling of muscle spasming in her left arm. She denies chest pain or shortness of breath. Reports she took ibuprofen which causes slight nausea that has went away. She reports a history of AFib MD complaint: injury to: left, shoulder and arm Related Data Home Medications Medication Instructions Recorded Confirmed levothyroxine 75 mcg capsule 75 mcg PO DAILY 02/16/21 12/20/22 simvastatin 40 mg tablet 40 mg PO DAILY 02/16/21 12/20/22 cholecalciferol (vitamin D3) 25 25 mcg PO DAILY 03/10/21 12/20/22 mcg (1,000 unit) tablet cyanocobalamin (vitamin B-12) 100 100 mcg PO DAILY 03/10/21 12/20/22 mcg tablet loratadine 10 mg tablet (Allergy 10 mg PO DAILY PRN Allergy Symptoms 05/26/21 12/20/22 Relief (loratadine)) dicyclomine 10 mg capsule 10 mg PO BID 08/02/22 12/20/22 fluticasone propionate 50 1 spray intranasal DAILY 08/02/22 12/20/22 mcg/actuation nasal spray,suspension (Allergy Relief (fluticasone)) Allergies Allergy/AdvReac Type Severity Reaction Status Date / Time cortisone Allergy Unknown KNEE Verified 12/20/22 10:43 SWELLING WITH CORTISONE INJECTIONS Sulfa (Sulfonamide Allergy Unknown Unknown Verified 12/20/22 10:43 Antibiotics) Review of Systems Review of Systems: CONSTITUTIONAL: Denies malaise, chills, sweats, or fever. CARDIOVASCULAR: Denies chest pain, palpitations, or edema. RESPIRATORY: Denies cough or dyspnea. SKIN: Denies rash or itching, bruising, redness, swelling. MUSCULOSKELETAL: Reports left arm, neck and shoulder pain NEUROLOGIC: Denies numbness, weakness All systems reviewed & are unremarkable except as noted in HPI and below PMFSH Past Medical History Medical History Arthritis of left knee Atrial fibrillation Hyperlipidemia Hypothyroidism Surgical History Surgical History History of carpal tunnel surgery (~2002) History of lateral meniscus repair of left knee (~2005) Family History Family History Father Diabetes mellitus Heart disease Coronary heart disease Mother Cancer Colon cancer Sibling Coronary heart disease Hypertension Sibling Coronary heart disease Hypertension Sibling Breast cancer Hypertension Son Alcohol abuse Liver failure Hypertension Daughter Hypertension Social History Social History Smoking status: Never smoker Second hand tobacco smoke exposure: No Alcohol intake: current Drinks per week: 10 Alcohol use details: 1 drink daily Substance use: never Substance use type: does not use Living arrangements: alone Gender identity (if verbalized by the patient): Female Sexual Orientation (if Verbalized by the Patient): Straight or Heterosexual Spiritual care concerns: No Comments At time of signature, agree with nursing past medical, surgical, social and family history. There is no relevant family history pertinent to the presenting complaint Exam Narrative: GENERAL: Well-appearing, well-nourished, and in no acute distress. HEAD: Normocephalic, atraumatic. EYES: PERRLA, conjunctivae clear NECK: Supple. CHEST:
--- NOTE | 2022-12-20 11:12 | ECG_ITS ---
Measurements Intervals [place] Rate: 77 P: 64 DE: 141 QRS: 12 QRSD: 73 T: 40 QT: 371 QTc: 422 Interpretive Statements SINUS RHYTHM WITH SINUS ARRHYTHMIA RSR' IN V1 OR V2, PROBABLY NORMAL VARIANT BASELINE ARTIFACT- II, III, AVR, AVL, AVF BORDERLINE ECG COMPARED TO ECG 05/26/2021 21:22:45 SINUS ARRHYTHMIA NOW PRESENT Electronically Signed On 12-20-2022 12:29:15 CDT by Arnulfo Torre D.O.
== END 2022-12-20 11:32 | disposition home or self-care (01) ==
PROVIDERS: Emergency Provider Nurse Practitioner; PCP Family Medicine
DX: S16.1XXA Strain of muscle, fascia and tendon at neck level, initial encounter (principal); X58.XXXA Exposure to other specified factors, initial encounter; I48.91 Unspecified atrial fibrillation; E78.5 Hyperlipidemia, unspecified; E03.9 Hypothyroidism, unspecified
CPT/HCPCS: 93005; 99213; G0463

== ENCOUNTER 2023-02-05 10:54 | Outpatient (CLI) | payer MEDICARE, SELFPAY ==
--- NOTE | 2023-02-05 | ECG_ITS ---
Measurements Intervals [place] Rate: 74 P: 75 WA: 138 QRS: 7 QRSD: 71 T: 34 QT: 363 QTc: 405 Interpretive Statements SINUS RHYTHM INCOMPLETE RIGHT BUNDLE BRANCH BLOCK T WAVE ABNORMALITY IN ANTERIOR LEADS- CONSIDER ISCHEMIA ABNORMAL ECG COMPARED TO ECG 12/20/2022 11:17:50 T WAVE ABNORMALITY NOW PRESENT Electronically Signed On 02-05-2023 11:51:28 CDT by Arnulfo Torre D.O.
== END 2023-02-05 10:55 | disposition home or self-care (01) ==
PROVIDERS: PCP Family Medicine; Visit Provider Internal Medicine Cardiovascular Disease
DX: I48.0 Paroxysmal atrial fibrillation (principal); I45.10 Unspecified right bundle-branch block
CPT/HCPCS: 93005

== ENCOUNTER 2024-05-13 08:27 | Outpatient (CLI) | payer MEDICARE, SELFPAY ==
[2024-05-13 12:37] LABS: Hematocrit 43.5 % (37.0-47.0); Hemoglobin 14.2 g/dL (12.0-15.0); Mean Corpuscular HGB Conc 32.6 g/dl (32-36); Mean Corpuscular Hemoglobin 35.7 pg (26-34); Mean Corpuscular Volume 109.3 fl (80-100); Mean Platelet Volume 10.4 fl (7.4-10.4); Platelet Count Result 217 k/mm3 (150-375); Red Blood Count 3.98 M/mm3 (4.2-5.4); Red Cell Distribution Width 12.5 % (11.5-14.5); White Blood Count 7.9 K/mm3 (4.5-10.0)
[2024-05-13 13:24] LABS: Alanine Aminotransferase 23 U/L (6-35); Alkaline Phosphatase 58 U/L (38-126); Anion Gap 10 mmol/L (4-12); Aspartate Amino Transferase 50 U/L (14-36); Bilirubin,Total 1.3 mg/dL (0.2-1.3); Blood Urea Nitrogen 9 mg/dL (7-17); Calcium 9.2 mg/dL (8.4-10.2); Carbon Dioxide 29 mmol/L (22-30); Chloride 99 mmol/L (98-107); Cholesterol 219 mg/dL (0-200); Estimated Glomerular Filt Rate > 60; Glucose 115 mg/dL (65-110); HDL Direct 69 mg/dL; Potassium 3.9 mmol/L (3.4-5.0); Sodium 138 mmol/L (137-145); Triglycerides 110 mg/dL (<150)
[2024-05-13 13:35] LABS: LDL Cholesterol Direct 129 mg/dL
[2024-05-13 15:49] LABS: Free T4 Free Thyroxine 1.17 ng/mL (0.78-2.19)
[2024-05-13 17:05] LABS: Vitamin B12 > 1000.0 pg/mL (239-931)
[2024-05-13 18:59] LABS: Thyroid Stimulating Hormone 0.302 uIU/mL (0.465-4.680)
[2024-05-16 15:18] LABS: Vitamin D 1,25 (OH)2 Total 24 pg/mL (18-72); Vitamin D2 1,25 (OH)2 <8 pg/mL; Vitamin D3 1,25 (OH)2 24 pg/mL
== END 2024-05-13 08:28 | disposition home or self-care (01) ==
LOC: ANHGOSHLAB 08:28
PROVIDERS: Nurse Practitioner; PCP Family Medicine; Visit Provider Family Medicine
DX: R73.01 Impaired fasting glucose (principal); E53.8 Deficiency of other specified B group vitamins; Z79.899 Other long term (current) drug therapy; E78.5 Hyperlipidemia, unspecified; E55.9 Vitamin D deficiency, unspecified; E03.9 Hypothyroidism, unspecified; M85.88 Other specified disorders of bone density and structure, other site
CPT/HCPCS: 36415; 80053; 80061; 82607; 82652; 83036; 84439; 84443; 85027

== ENCOUNTER 2024-08-25 15:49 | Outpatient (CLI) | payer MEDICARE, SELFPAY ==
[2024-08-25 19:23] LABS: Hematocrit 41.9 % (37.0-47.0); Hemoglobin 13.8 g/dL (12.0-15.0); Mean Corpuscular HGB Conc 32.9 g/dl (32-36); Mean Corpuscular Hemoglobin 35.4 pg (26-34); Mean Corpuscular Volume 107.4 fl (80-100); Platelet Count Result 212 k/mm3 (150-375); Red Cell Distribution Width 12.4 % (11.5-14.5); White Blood Count 8.4 K/mm3 (4.5-10.0)
[2024-08-25 19:32] LABS: Alanine Aminotransferase 30 U/L (6-35); Albumin Level 4.1 g/dL (3.5-5.1); Alkaline Phosphatase 66 U/L (38-126); Anion Gap 9 mmol/L (4-12); Aspartate Amino Transferase 77 U/L (14-36); Bilirubin,Total 0.9 mg/dL (0.2-1.3); Blood Urea Nitrogen 8 mg/dL (7-17); Calcium 9.2 mg/dL (8.4-10.2); Carbon Dioxide 27 mmol/L (22-30); Chloride 103 mmol/L (98-107); Cholesterol 234 mg/dL (0-200); Estimated Glomerular Filt Rate > 60; Glucose 95 mg/dL (65-110); HDL Direct 71 mg/dL; Potassium 4.3 mmol/L (3.4-5.0); Sodium 139 mmol/L (137-145); Triglycerides 154 mg/dL (<150)
[2024-08-25 19:43] LABS: LDL Cholesterol Direct 136 mg/dL
[2024-08-25 20:00] LABS: Thyroid Stimulating Hormone < 0.015 uIU/mL (0.465-4.680)
[2024-08-25 21:26] LABS: Hemoglobin A1C 4.9 % (<5.7)
[2024-08-25 22:17] LABS: Free T4 Free Thyroxine 1.44 ng/mL (0.78-2.19)
[2024-08-25 23:32] LABS: Vitamin D 25 Hydroxy > 126.0 ng/mL
[2024-08-26 06:18] LABS: Vitamin B12 > 1000.0 pg/mL (239-931)
== END 2024-08-25 15:50 | disposition home or self-care (01) ==
LOC: ANHGOSHLAB 15:50
PROVIDERS: PCP Nurse Practitioner; Visit Provider Nurse Practitioner
DX: E03.9 Hypothyroidism, unspecified (principal); E55.9 Vitamin D deficiency, unspecified; E53.8 Deficiency of other specified B group vitamins; R73.01 Impaired fasting glucose; Z12.11 Encounter for screening for malignant neoplasm of colon
CPT/HCPCS: 36415; 80053; 80061; 82306; 82607; 83036; 84439; 84443; 85027

== ENCOUNTER 2024-12-24 08:27 | Day surgery (SDC) | payer MEDICARE, SELFPAY ==
[2024-12-03 14:08] VITALS: BMI 23.1
--- NOTE | 2024-12-03 14:43 | PC.NURSE ---
RN WALKED OVER TO DR MILLER OFFICE, SPOKE WITH JOEL CASTAÑEDA. PT DOES NOT NEED TO STOP ELIQUIS PRIOR TO PROCEDURE. PT ALSO HAS ANOTHER PREOP APPT IN THE OFFICE ON 12/21/24 AT 1100. WILL NOTIFY PT.
--- NOTE | 2024-12-24 07:02 | WPDANESEPPF ---
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 Patient Data Age: 84 Gender: F Height: 1.5 m Weight: 52 kg Allergies Allergy/AdvReac Type Severity Reaction Status Date / Time No Known Allergies Allergy Verified 12/24/24 09:05 Home Medications ?Medication ?Instructions ?Recorded ?Confirmed ?Type cholecalciferol (vitamin D3) 25 25 mcg PO DAILY 03/10/21 12/24/24 History mcg (1,000 unit) tablet cyanocobalamin (vitamin B-12) 100 100 mcg PO DAILY 03/10/21 12/24/24 History mcg tablet apixaban 5 mg tablet (Eliquis) 5 mg PO BID #60 tabs 05/27/21 12/24/24 Rx metoprolol tartrate 25 mg tablet 25 mg PO Q12H #60 tabs 05/27/21 12/24/24 Rx levothyroxine 50 mcg tablet See Rx Instructions .Route 11/03/24 12/24/24 Rx .COMPLEX #100 tabs simvastatin 20 mg tablet 20 mg PO DAILY #90 tabs 11/11/24 12/24/24 Rx tramadol 50 mg tablet 50 mg PO Q6H PRN pain #12 tabs 12/24/24 Rx Patient hx anesthesia problems: none Family hx anesthesia problems: none Results Review: All pre-operative results and documents have been reviewed as part of the pre-operative evaluation. [facility] Past Medical History Medical History Atrial fibrillation Arthritis of left knee Hyperlipidemia Hypothyroidism Surgical History Surgical History History of lateral meniscus repair of left knee (~2005) History of carpal tunnel surgery (~2002) Family History Family History Father Diabetes mellitus Heart disease Coronary heart disease Mother Cancer Colon cancer Sibling Coronary heart disease Hypertension Sibling Coronary heart disease Hypertension Sibling Breast cancer Hypertension Son Alcohol abuse Liver failure Hypertension Daughter Hypertension Social History Social History Smoking status: Never smoker Second hand tobacco smoke exposure: No Alcohol intake: current Drinks per week: 7 Alcohol use details: 1 drink daily Substance use: never Substance use type: does not use Do You Feel Safe in your Home?: Yes Lack of Transportation: No Lack of Food: Never True Current Housing: I Have Housing Concerned About Future Housing: No Difficulty Paying Gas/Electric Bills: No Difficulty Paying for Meds: No Currently Unemployed: No Education: High School Diploma/GED Difficulty w/ Childcare or Family Care: No Living arrangements: alone Gender identity (if verbalized by the patient): Female Sexual Orientation (if Verbalized by the Patient): Straight or Heterosexual Spiritual care concerns: No Anes - Eval Final PreProcedure Day of Procedure 12/24/24 07:02 Patient weight: normal Heart: regular rate and rhythm Lungs: clear to auscultation and normal air movement Airway: Mallampati scale class II Neurological: alert and oriented Last oral intake: >/= 8 hours ASA classification: III Emergent: no Anesthetic plan: proceed Anesthesia type and monitoring: general GIVS and standard monitoring Results Review: All pre-operative results and documents have been reviewed as part of the pre-operative evaluation. Informed Consent: The patient's anesthetic plan and its attendant risks and benefits were discussed with the patient/family/POA. Questions were solicited and answers provided to the satisfaction of the patient/family/POA.
--- NOTE | 2024-12-24 07:12 | WPDHPUPDATE1 ---
History and Physical Update Update Date/Time: 12/24/24 07:12 Patient seen and examined in pre-operative holding area. No interval change in medical history or symptoms. Patient recalls previous discussion of benefits and alternatives to procedure. Continues to desire to proceed with left endoscopic possible open carpal tunnel release and left cubital tunnel release . Reviewed procedure, post-op expectations and risks including but not limited to bleeding, infection, injury to tendon/nerve/vessel, decreased hand function, stiffness, RSD, no change or worsening of symptoms. I discussed the possible use of assistants and their participation in the case. Patient stated understanding and signed the consent form wishing to proceed.
--- NOTE | 2024-12-24 07:12 | W.PM.PROC2 ---
Procedure Note - Detailed Date of Procedure 12/24/24 Pre-op Diagnosis Left Carpal and Cubital Tunnel Syndrome Post-op Diagnosis Same Procedure Performed left ectr and CuTR Surgeon Natty Marmolejo MD Shellac Polisher rosamaria salinas pa-c Anesthesia MAC Description of Procedure INFORMED CONSENT: The patient was seen and examined and marked in the pre-op area.? The patient signed the consent form. PROCEDURE IN DETAIL:The patient taken back to OR on the stretcher in supine position. Time out performed with anesthesia, surgeon and staff agreeing on patient's name site and surgery to be performed SCDs were placed on the lower extremities and inflated. A tourniquet was placed on {left} upper extremity and antibiotics given IV After anesthesia administered sedation I injected {10}cc 1%lido with epi and 0.5% marcaine plain at the operative sites The?{left upper extremity}?was prepped and draped in sterile fashion the??{left upper extremity} was? exsanguinated with Esmarch bandage and tourniquet inflated to 250mmHg I made a transverse incision in the {left} volar distal wrist crease through skin and dermis with 15 blade scalpel.? Littler scissors spread down to antebrachial fascia. A small incision was made in antebrachial fascia allowing access to Carpal tunnel. I proceeded with sequential dilation staying in line with the ring finger and hugging the hook of the hamate.? I then used the synovial elevator to free any adhesions from the underside of the transverse carpal ligament. Next I was able to insert the Microaire endoscopic carpal tunnel device with direct visualization of the transverse fibers on the monitor and proceeded with complete segmental retrograde release of the ligament in its entirety.? I irrigated with normal saline and closed with 4-0 monocryl for dermis and subcuticular closure. I next proceeded with making a longitudinal incision between two heads for flexor carpi ulnaris at end of {left} cubital tunnel with 15 blade scalpel.? Littler scissors were used to spread down to FCU fascia.? An incision was made in FCU fascia and ulnar nerve identified exiting cubital tunnel.? I proceeded with complete retrograde release of the cubital tunnel including 7cm proximal for the intermuscular septum.? The nerve appeared healthy with visible vaso nervorum.? There was no subluxation on full elbow range of motion. ? I irrigated with normal saline and closure with 4-0 monocryl for dermis and subcuticular. The incisions were covered with Dermabond then 4x4s, mario, and a posterior elbow and volar wrist splint for patient safety, security and comfort and secured with sheryl bandages after the tourniquet was let down noting the hand was warm and well perfused.? Patient awaken from anesthesia and transferred to recovery in stable condition Complications - none EBL- 1cc Disposition - home in stable conditions Rosamaria Salinas PA-C was essential for positioning, retraction, closure and dressing placement [facility] Billing Surgery - Charge Forward: Surgery Billing ([id number] same for rosamaria adding modifier )
[2024-12-24 09:07] VITALS: BP 153/73; PULSE 65; RESP 15; TEMP 36.6; O2SAT 98
--- OUTSIDE RECORDS SUMMARY | 2024-12-24 09:10 | XMS_ITS | Clinical Summary ---
Author Organization [facility] [address] Address [address] [place] [address] Care Team Providers Care Insurance Account Assistant Name Role Phone Sasha Jacobo DO Primary Care Provider [phone]- [phone] Allergies No known active allergies Medications levothyroxine (SYNTHROID) 75 mcg tablet Take 50 mcg by mouth daily 1 Active cholecalcifero l (VITAMIN D-3) 2000 unit capsule 1 capsule (2,000 Units total) Active cyanocobalamin (Vitamin B-12) 1,000 mcg tabletIndicati ons:Prevention of Vitamin B12 Deficiency Take 1 tablet (1,000 mcg total) by mouth daily Active metoprolol tartrate (LOPRESSOR) 50 mg immediate release tablet Take 1 tablet (50 mg total) by mouth 2 (two) times a day 200 tablet 2 4 Active simvastatin (ZOCOR) 20 mg tablet Take 1 tablet (20 mg total) by mouth nightly Active Eliquis 2.5 mg tablet TAKE 1 TABLET BY MOUTH TWICE DAILY 200 tablet 2 5 Active apixaban (Eliquis) 2.5 mg tablet Take 1 tablet (2.5 mg total) by mouth 2 (two) times a day 200 tablet 2 4 12/17/19 25 Discontinued Active Problems Problem Noted Date Diagnosed Date Paroxysmal atrial fibrillation 09/09/2024 Mixed hyperlipidemia 09/09/2024 Chronic anticoagulation 09/09/2024 Primary hypertension 09/09/2024 Non-toxic multinodular goiter 02/20/2014 Overview (01/09/2017): NONTOX MULTINODUL GOITER Hypothyroidism 02/20/2014 Overview (01/11/2017): HYPOTHYROIDISM NOS Lymphocytic thyroiditis 02/20/2014 Overview (01/11/2017): CHR LYMPHOCYT THYROIDIT Surgical History Surgery Date Site/Laterality Comments KNEE SURGERY 03/07/2021 - 04/05/2021 Left Medical History Medical History Date Comments Hx Other Medical knee surgery 20 04 Disorder of thyroid Thyroid dise ase Hx Other Medical not clausaphoic ; Comments: REID 04/06/2014 - Family History Medical History Relation Name Comments Other Other No family histo ry of Thyroid disorder; Relation Name Status Comments Other Social History Tobacco Use Types Packs/Day Years Used Date Smoking Tobacco: Never Smokeless Tobacco: Never Tobacco Cessation:Counseling Given: Not Answered Alcohol Use Standard Drinks/Week Comments Yes 0 (1 standard drink = 0.6 oz pur e alcohol) Comments Unknown Sex and Gender Information Value Date Recorded Sex Assigned at Not on file Legal Sex Female 11:11 AM ELEVATOR TENDER Gender Identity Not on file Sexual Orientation Not on file Obstetrics History Last Filed Vital Signs Vital Sign Reading Time Taken Comments Blood Pressure 142/86 09/09/2024 11:30 AM ELEVATOR TENDER Pulse 69 09/09/2024 11:30 AM ELEVATOR TENDER Temperature 36.4 C (97.6 F) 07/03/2021 2:47 PM CDT Respiratory Rate - - Oxygen Saturation 99% 09/09/2024 11:30 AM ELEVATOR TENDER Inhaled Oxygen Concentration - - Weight 53.1 kg (117 lb) 09/09/2024 11:30 AM ELEVATOR TENDER Height 149.9 cm (4' 11 ) 09/09/2024 11:30 AM ELEVATOR TENDER Body Mass Index 23.63 09/09/2024 11:30 AM ELEVATOR TENDER Plan of Treatment Health Maintenance Due Date Last Done Comments Depression Screening 1942 Fall Risk Assessment 1942 Osteoporosis Screening-Bone Density Scan 1942 DTaP/Tdap/Td Vaccine (1 - Tdap) 1953 Hepatitis B Screening 1960 Pneumococcal vaccine 65+ (1 of 1 - PCV) 1992 Zoster Vaccine (1 of 2) 1992 Well Visit 65+ 2007 Covid-19 Vaccine (3 2023-2 5 season) 2024 12/29/2020, 12/01/2020 Influenza Vaccine (#1) 2024 , 09/12/2018, 07/08/2017, Additional history exists Insurance [facility] MDCR HMO REF MEDICARE SOLUTIONS MEDICARE SOLUTIONS Care Teams Insurance Account Assistant Relationship Specialty Start Date End Date Sasha Jacobo DO [facility] [place] [address] [id number] PCP - General Family Medicine 09/09/24
--- OUTSIDE RECORDS SUMMARY | 2024-12-24 09:10 | XMS_ITS | Data Portability ---
Author Organization [facility] [employer], Main Office Address [address] [place] [address] Care Team Providers Care Perforator Name Role Phone CORNELIA KNOX Primary Care Provider CORNELIA KNOX Referring Provider Assessment No assessment recorded. Plan of Treatment Reminders Order Date Submit Date Provider Last Modified By Organization Details Last Modified Time Details Appointments None recorded. Lab TSH, serum or plasma 2022 023 [employer] [facility], [address], [place], [address], 3 20:00:15 T4, free, serum 2022 023 [employer] [facility], [address], [place], [address], 3 19:55:00 CBC w/ auto diff 2022 023 [employer] [facility], [address], [place], [address], 3 19:52:14 HbA1c (hemoglobin A1c), blood 2022 023 [email or web address] Not available 3 08:16:57 vitamin D, 25-hydroxy, total, serum 2022 023 [email or web address] Not available 3 08:16:57 TSH, serum or plasma 2022 023 [facility] Not available 3 14:48:58 CBC w/ auto diff 2022 023 [facility] Not available 3 13:43:32 CMP, serum or plasma 2022 023 [facility] Not available 3 14:21:42 vitamin B12 + folate, serum or blood 2022 023 [email or web address] Not available 3 08:16:56 Referral None recorded. Procedures None recorded. Surgeries None recorded. Imaging XR, cervical spine, 2 or 3 view 2022 023 [facility], [address] [place] [address], [place], [address], 3 19:59:57 Medication Orders prednisone 20 mg tablet 2022 023 [id number], [address] [place], [address], 3 12:42:33 neomycin 3.5 mg/g-polymy cameron B 10,000 unit/g-dexa meth 0.1 % eye oint 2022 023 [id number], [address] [place], [address], 3 13:13:14 Anusol-HC 2.5 % topical cream with perineal applicator 2022 023 [email or web address] [place], [address], 3 09:46:22 Patient TargetsNo targets recorded. Patient InstructionsNo instructions recorded. Reason for Referral None Reported. Results Created Date Observation Date Name Description Value Unit Range Abnormal Flag Note LastModifiedBy Organization Detail LastModifiedTime 02/14/20 23 02/13/2023 CBC/C OMPLE TE BLD COUNT W/DIF F white blood cells 8.6 x10'3 /uL 4.2-10 .8 Not Available [facility] (Lab) [address] [place], [address], 02/13/2023 13:43:32 02/14/20 23 02/13/2023 CBC/C OMPLE TE BLD COUNT W/DIF F red blood cells 3.52 x10'6 /uL 3.80-5 .20 low Not Available [facility] (Lab) [address] [place], [address], 02/13/2023 13:43:32 02/14/20 23 02/13/2023 CBC/C OMPLE TE BLD COUNT W/DIF F hemoglobin 11.8 g/dL 12.0-1 5.6 low Not Available [facility] (Lab) [address] [place], [address], 02/13/2023 13:43:32 02/14/20 23 02/13/2023 CBC/C OMPLE TE BLD COUNT W/DIF F hematocrit 36.9 % 35.7-4 5.7 Not Available [facility] (Lab) [address] [place], [address], 02/13/2023 13:43:32 02/14/20 23 02/13/2023 CBC/C OMPLE TE BLD COUNT W/DIF F mean red cell volume 104.8 fL 82.0-9 9.0 high Not Available [facility] (Lab) [address] [place], [address], 02/13/2023 13:43:32 02/14/20 23 02/13/2023 CBC/C OMPLE TE BLD COUNT W/DIF F mean red cell hemoglobin 33.5 pg 27.0-3 3.0 high Not Available [facility] (Lab) [address] [place], [address], 02/13/2023 13:43:32 02/14/20 23 02/13/2023 CBC/C OMPLE TE BLD COUNT W/DIF F mean RBC HGB concentratio n 32.0 g/dL 31.0-3 6.0 Not Available [facility] (Lab) [address] [place], [address], 02/13/2023 13:43:32 02/14/20 23 02/13/2023 CBC/C OMPLE TE BLD COUNT W/DIF F red cell distribution width 13.4 % 11.8-1 5.5 Not Available [facility] (Lab) [address] [place], [address], 02/13/2023 13:43:32 02/14/20 23 02/13/2023 CBC/C OMPLE TE BLD COUNT W/DIF F platelets 371 x10'3 /uL 150-40 0 Not Available [facility] (Lab) [address] [place], [address], 02/13/2023 13:43:32 02/14/20 23 02/13/2023 CBC/C OMPLE TE BLD COUNT W/DIF F mean platelet volume 9.6 fL 9.0-12 .4 Not Available [facility] (Lab) [address] [place], [address], 02/13/2023 13:43:32 02/14/20 23 02/13/2023 CBC/C OMPLE TE BLD COUNT W/DIF F neutrophils 61.4 % 39.0-7 2.0 Not Available [facility] (Lab) [address] [place], [address], 02/13/2023 13:43:32 02/14/20 23 02/13/2023 CBC/C OMPLE TE BLD COUNT W/DIF F lymphocytes 19.3 % 16.0-4 7.0 Not Available [facility] (Lab) [address] [place], [address], 02/13/2023 13:43:32 02/14/20 23 02/13/2023 CBC/C OMPLE TE BLD COUNT W/DIF F monocytes 14.3 % 5.0-12 .0 high Not Available [facility] (Lab) [address] [place], [address], 02/13/2023 13:43:32 02/14/20 23 02/13/2023 CBC/C OMPLE TE BLD COUNT W/DIF F eosinophils 1.3 % 1.0-7. 0 Not Available [facility] (Lab) [address] [place], [address], 02/13/2023 13:43:32 02/14/20 23 02/13/2023 CBC/C OMPLE TE BLD COUNT W/DIF F basophils 0.8 % 0.0-2. 0 Not Available [facility] (Lab) [address] [place], [address], 02/13/2023 13:43:32 02/14/20 23 02/13/2023 CBC/C OMPLE TE BLD COUNT W/DIF F immature granulocytes 2.9 % 0.00-0 .50 high Not Available [facility] (Lab) [address] [place], [address], 02/13/2023 13:43:32 02/14/20 23 02/13/2023 CBC/C OMPLE TE BLD COUNT W/DIF F neutrophils, absolute count 5.29 x10'3 /uL 1.5-8. 0 Not Available [facility] (Lab) [address] [place], [address], 02/13/2023 13:43:32 02/14/20 23 02/13/2023 CBC/C OMPLE TE BLD COUNT W/DIF F lymphocytes, absolute count 1.66 x10'3 /uL 1.07-3 .43 Not Available [facility] (Lab) [address] [place], [address], 02/13/2023 13:43:32 02/14/20 23 02/13/2023 CBC/C OMPLE TE BLD COUNT W/DIF F monocytes, absolute count 1.23 x10'3 /uL 0.29-0 .99 high Not Available [facility] (Lab) [address] [place], [address], 02/13/2023 13:43:32 02/14/20 23 02/13/2023 CBC/C OMPLE TE BLD COUNT W/DIF F eosinophils, absolute count 0.11 x10'3 /uL 0.02-0 .53 Not Available [facility] (Lab) [address] [place], [address], 02/13/2023 13:43:32 02/14/20 23 02/13/2023 CBC/C OMPLE TE BLD COUNT W/DIF F basophils, absolute count 0.07 x10'3 /uL 0.01-0 .08 Not Available [facility] (Lab) [address] [place], [address], 02/13/2023 13:43:32 02/14/20 23 02/13/2023 CBC/C OMPLE TE BLD COUNT W/DIF F immature granulocytes ,absolute 0.25 x10'3 /uL 0.00-0 .05 high Not Available [facility] (Lab) [address] [place], [address], 02/13/2023 13:43:32 02/14/20 23 02/13/2023 CBC/C OMPLE TE BLD COUNT W/DIF F nucleated red blood cells 0.0 % -0 Not Available [facility] (Lab) [address] [place], [address], 02/13/2023 13:43:32 02/14/20 23 02/13/2023 CBC/C OMPLE TE BLD COUNT W/DIF F NRBC# 0.00 x10'3 /uL Not Available [facility] (Lab) [address] [place], [address], 02/13/2023 13:43:32 02/14/20 23 02/13/2023 COMPR EHENS VALENTE METAB OLIC PANEL sodium 135 mmol/ L 137-14 5 low Not Available [facility] (Lab) [address] [place], [address], 02/13/2023 14:21:42 02/14/20 23 02/13/2023 COMPR EHENS VALENTE METAB OLIC PANEL potassium 4.4 mmol/ L 3.5-5. 1 Not Available [facility] (Lab) [address] [place], [address], 02/13/2023 14:21:42 02/14/20 23 02/13/2023 COMPR EHENS VALENTE METAB OLIC PANEL chloride 102 mmol/ L 98-107 Not Available [facility] (Lab) [address] [place], [address], 02/13/2023 14:21:42 02/14/20 23 02/13/2023 COMPR EHENS VALENTE METAB OLIC PANEL carbon dioxide 27 mmol/ L 22-30 Not Available [facility] (Lab) [address] [place], [address], 02/13/2023 14:21:42 02/14/20 23 02/13/2023 COMPR EHENS VALENTE METAB OLIC PANEL anion gap 10.4 mmol/ L 14-22 low Not Available [facility] (Lab) [address] [place], [address], 02/13/2023 14:21:42 02/14/20 23 02/13/2023 COMPR EHENS VALENTE METAB OLIC PANEL glucose 104 mg/dL 70-99 high Not Available [facility] (Lab) [address] [place], [address], 02/13/2023 14:21:42 02/14/20 23 02/13/2023 COMPR EHENS VALENTE METAB OLIC PANEL BUN 6 mg/dL 8-19 low Not Available [facility] (Lab) [address] [place], [address], 02/13/2023 14:21:42 02/14/2002/13/2023 COMPR EHENS VALENTE METAB OLIC PANEL creatinine 0.52 mg/dL 0.66-1 .25 low Not Available [facility] (Lab) [address] [place], [address], 02/13/2023 14:21:42 02/14/20 23 02/13/2023 COMPR EHENS VALENTE METAB OLIC PANEL GFR >60 Refer ence Range : [place] ge GFR Healt hy Adult : >60 mL/mi n/1.7 3 m2 Chron ic Kidne y Disea se: 15-60 mL/mi n/1.7 3 m2 Kidne y Failu re: <15/m L/min /1.73 m2 www.n iddk. nih.g ov The MDRD study equat ion has not been valid ated in child candice <18 years of age; pregn ant women ; the elder ly >85 years of age; or in some racia l or ethni c subgr oups, such as Hisid nics. Outsi de the valid ated kiera eters , estim ated GFR is less accur ate, requi ring clini bob judgm ent on a case- by-ca se basis . Clini bob inter preta tion for other races and ages must be made by the clini gabriel. The MDRD study equat ion has not been valid ated for the evalu ation of serum creat inine relat ed to nutri alexis l statu s or medic ation usage . For perso ns <18 years of age, a pedia tric GFR calcu lator is avail able on the NKF websi te: https ://fernando cartwright.andreas kennedy/pr renee farmeral s/kdo qi/gf r_cal culat or Not Available [facility] (Lab) [address] [place], [address], 02/13/2023 14:21:42 02/14/2002/13/2023 COMPR EHENS VALENTE METAB OLIC PANEL alkaline phosphatase 73 U/L 38-126 Not Available [facility] (Lab) [address] [place], [address], 02/13/2023 14:21:42 02/14/20 23 02/13/2023 COMPR EHENS VALENTE METAB OLIC PANEL alanine aminotransfe rase 30 U/L 0-35 Not Available [facility] (Lab) [address] [place], [address], 02/13/2023 14:21:42 02/14/20 23 02/13/2023 COMPR EHENS VALENTE METAB OLIC PANEL aspartate aminotransfe rase 38 U/L 15-37 high Not Available [facility] (Lab) [address] [facility] [place], [address], 02/13/2023 14:21:42 02/14/20 23 02/13/2023 COMPR EHENS VALENTE METAB OLIC PANEL bilirubin, total 0.70 mg/dL 0.20-1 .30 Not Available [facility] (Lab) [address] [place], [address], 02/13/2023 14:21:42 02/14/20 23 02/13/2023 COMPR EHENS VALENTE METAB OLIC PANEL calcium 8.7 mg/dL 8.4-10 .2 Not Available [facility] (Lab) [address] [place], [address], 02/13/2023 14:21:42 02/14/20 23 02/13/2023 COMPR EHENS VALENTE METAB OLIC PANEL total protein 5.7 g/dL 6.3-8. 2 low Not Available [facility] (Lab) [address] [place], [address], 02/13/2023 14:21:42 02/14/20 23 02/13/2023 COMPR EHENS VALENTE METAB OLIC PANEL albumin 3.2 g/dL 3.0-4. 4 Not Available [facility] (Lab) [address] [place], [address], 02/13/2023 14:21:42 02/14/20 23 02/13/2023 COMPR EHENS VALENTE METAB OLIC PANEL globulin 2.5 g/dL 2.6-4. 2 low Not Available [facility] (Lab) [address] [place], [address], 02/13/2023 14:21:42 02/14/20 23 02/13/2023 COMPR EHENS VALENTE METAB OLIC PANEL A/G ratio 1.3 ratio 1.0-2. 0 Not Available [facility] (Lab) [address] [place], [address], 02/13/2023 14:21:42 02/14/20 23 02/13/2023 VITAM IN D 25-HY DROXY [id number] 96.5 NG/mL 30-100 Vitam in D Statu s: Defic ient: <20 ng/mL Insuf ficie nt: 20-29 ng/mL Suffi cient : 30-10 0 ng/mL Not Available [facility] (Lab) [address] [place], [address], 02/13/2023 14:42:29 02/14/20 23 02/13/2023 TSH thyroid-stim ulating hormone 0.079 uIU/m L 0.465- 4.680 low Not Available [facility] (Lab) [address] [place], [address], 02/13/2023 14:48:58 02/14/2002/13/2023 VITAM IN B12 (HERNANDEZ YANE ) vb12 >1000 pg/mL 239-93 1 high Not Available [facility] (Lab) [address] [place], [address], 02/13/2023 15:30:53 05/07/26 2302/13/2023 FOLAT E, SERUM /PLAS MA folate 8.38 NG/mL 2.76-2 0.0 Not Available [facility] (Lab) [address] [place], [address], 02/13/2023 15:30:58 02/14/20 23 02/13/2023 HEMOG LOBIN A1C HA1C 5.7 % 4.0-6. 0 Diabe ann Scree damir Crite bela: <5.7% Consi stent with absen ce of diabe ann 5.7-6 .4% Consi stent with incre ased risk for diabe ann (pred iabet es) >OR=6 .5% Consi stent with diabe ann REFER ENCE: Diabe ann Care 2016, 39(Mccall ppl.1 ):s13 -s22 Not Available [facility] (Lab) [address] [place], [address], 02/13/2023 20:19:08 06/28/20 23 07/01/2023 CBC/C OMPLE TE BLD COUNT W/DIF F white blood cells 7.8 x10'3 /uL 4.2-10 .8 Not Available [facility] (Lab) [address] [place], [address], 07/01/2023 10:07:06 06/28/20 23 07/01/2023 CBC/C OMPLE TE BLD COUNT W/DIF F red blood cells 3.96 x10'6 /uL 3.80-5 .20 Not Available [facility] (Lab) [address] [place], [address], 07/01/2023 10:07:06 06/28/20 23 07/01/2023 CBC/C OMPLE TE BLD COUNT W/DIF F hemoglobin 13.8 g/dL 12.0-1 5.6 Not Available [facility] (Lab) [address] [place], [address], 07/01/2023 10:07:06 06/28/20 23 07/01/2023 CBC/C OMPLE TE BLD COUNT W/DIF F hematocrit 41.8 % 35.7-4 5.7 Not Available [facility] (Lab) [address] [place], [address], 07/01/2023 10:07:06 06/28/20 23 07/01/2023 CBC/C OMPLE TE BLD COUNT W/DIF F mean red cell volume 105.6 fL 82.0-9 9.0 high Not Available [facility] (Lab) [address] [facility] [place], [address], 07/01/2023 10:07:06 06/28/20 23 07/01/2023 CBC/C OMPLE TE BLD COUNT W/DIF F mean red cell hemoglobin 34.8 pg 27.0-3 3.0 high Not Available [facility] (Lab) [address] [place], [address], 07/01/2023 10:07:06 06/28/20 23 07/01/2023 CBC/C OMPLE TE BLD COUNT W/DIF F mean RBC HGB concentratio n 33.0 g/dL 31.0-3 6.0 Not Available [facility] (Lab) [address] [place], [address], 07/01/2023 10:07:06 06/28/20 23 07/01/2023 CBC/C OMPLE TE BLD COUNT W/DIF F red cell distribution width 13.2 % 11.8-1 5.5 Not Available [facility] (Lab) [address] [place], [address], 07/01/2023 10:07:06 06/28/20 23 07/01/2023 CBC/C OMPLE TE BLD COUNT W/DIF F platelets 224 x10'3 /uL 150-40 0 Not Available [facility] (Lab) [address] [place], [address], 07/01/2023 10:07:06 06/28/20 23 07/01/2023 CBC/C OMPLE TE BLD COUNT W/DIF F mean platelet volume 10.4 fL 9.0-12 .4 Not Available [facility] (Lab) [address] [place], [address], 07/01/2023 10:07:06 06/28/20 23 07/01/2023 CBC/C OMPLE TE BLD COUNT W/DIF F neutrophils 53.8 % 39.0-7 2.0 Not Available [facility] (Lab) [address] [place], [address], 07/01/2023 10:07:06 06/28/2007/01/2023 CBC/C OMPLE TE BLD COUNT W/DIF F lymphocytes 31.0 % 16.0-4 7.0 Not Available [facility] (Lab) [address] [place], [address], 07/01/2023 10:07:06 06/28/2007/01/2023 CBC/C OMPLE TE BLD COUNT W/DIF F monocytes 12.9 % 5.0-12 .0 high Not Available [facility] (Lab) [address] [place], [address], 07/01/2023 10:07:06 06/28/2007/01/2023 CBC/C OMPLE TE BLD COUNT W/DIF F eosinophils 1.0 % 1.0-7. 0 Not Available [facility] (Lab) [address] [place], [address], 07/01/2023 10:07:06 06/28/2007/01/2023 CBC/C OMPLE TE BLD COUNT W/DIF F basophils 0.8 % 0.0-2. 0 Not Available [facility] (Lab) [address] [place], [address], 07/01/2023 10:07:06 06/28/20 23 07/01/2023 CBC/C OMPLE TE BLD COUNT W/DIF F immature granulocytes 0.5 % 0.00-0 .50 Not Available [facility] (Lab) [address] [place], [address], 07/01/2023 10:07:06 06/28/20 23 07/01/2023 CBC/C OMPLE TE BLD COUNT W/DIF F neutrophils, absolute count 4.19 x10'3 /uL 1.5-8. 0 Not Available [facility] (Lab) [address] [place], [address], 07/01/2023 10:07:06 06/28/20 23 07/01/2023 CBC/C OMPLE TE BLD COUNT W/DIF F lymphocytes, absolute count 2.41 x10'3 /uL 1.07-3 .43 Not Available [facility] (Lab) [address] [place], [address], 07/01/2023 10:07:06 06/28/20 23 07/01/2023 CBC/C OMPLE TE BLD COUNT W/DIF F monocytes, absolute count 1.00 x10'3 /uL 0.29-0 .99 high Not Available [facility] (Lab) [address] [place], [address], 07/01/2023 10:07:06 06/28/20 23 07/01/2023 CBC/C OMPLE TE BLD COUNT W/DIF F eosinophils, absolute count 0.08 x10'3 /uL 0.02-0 .53 Not Available [facility] (Lab) [address] [place], [address], 07/01/2023 10:07:06 06/28/20 23 07/01/2023 CBC/C OMPLE TE BLD COUNT W/DIF F basophils, absolute count 0.06 x10'3 /uL 0.01-0 .08 Not Available [facility] (Lab) [address] [place], [address], 07/01/2023 10:07:06 06/28/20 23 07/01/2023 CBC/C OMPLE TE BLD COUNT W/DIF F immature granulocytes ,absolute 0.04 x10'3 /uL 0.00-0 .05 Not Available [facility] (Lab) [address] [place], [address], 07/01/2023 10:07:06 06/28/20 23 07/01/2023 CBC/C OMPLE TE BLD COUNT W/DIF F nucleated red blood cells 0.0 % -0 Not Available [facility] (Lab) [address] [place], [address], 07/01/2023 10:07:06 06/28/20 23 07/01/2023 CBC/C OMPLE TE BLD COUNT W/DIF F NRBC# 0.00 x10'3 /uL Not Available [facility] (Lab) [address] [place], [address], 07/01/2023 10:07:06 06/28/20 23 07/01/2023 CBC/C OMPLE TE BLD COUNT W/DIF F macro 1+ Not Available [facility] (Lab) [address] [place], [address], 07/01/2023 10:07:06 06/28/20 23 06/28/2023 T4 FREE free T4 1.16 NG/dL 0.78-2 .19 Not Available [facility] (Lab) [address] [place], [address], 06/28/2023 19:55:00 06/28/20 23 06/28/2023 TSH thyroid-stim ulating hormone 2.120 uIU/m L 0.465- 4.680 Not Available [facility] (Lab) [address] [place], [address], 06/28/2023 20:00:15 07/03/20 23 07/03/2023 VITAM IN B12 (HERNANDEZ YANE ) vb12 879 pg/mL 239-93 1 Not Available [facility] (Lab) [address] [place], [address], 07/03/2023 20:28:39 07/03/20 23 07/03/2023 FOLAT E, SERUM /PLAS MA folate 6.34 NG/mL 2.76-2 0.0 Not Available [facility] (Lab) [address] [place], [address], 07/03/2023 20:28:40 12/26/19 23 XR, cervi bob spine , 2 or 3 view [facility] [address] [place] [address] Patien t Name: KATHIE WILDER Access ion #: [id number] Sex: F : 1939 4 Locati on: RA2 Attend ing Physic dena: LALIAT IB, RUNDA Orderi ng Physic dena: ELKHAT IB, RUNDA Exam Date: 023 3:44 PM Exam Name: XR C SPINE 2-3V Admitt ing Diagno sis(es ): RADIOL OGY REPORT - FINAL EXAM: XR C SPINE 2-3V HISTOR Y: pain COMPAR ROSIE: None Availa ble. TECHNI QUE: AP, latera l, and AP open-m outh odonto id images are evalua marcellus. FINDIN GS: Develo pment is normal . Verteb ral bodies demons trate normal alignm ent and height . Interv ertebr al disc spaces are remark able for multil evel degene rative change s greate st at the C4-5 and C5-6 level. Zygoap ophyse al joint hypert rophic change s are noted at the C2-3 throug h C7-T1 disc space levels . The prever tebral soft tissue s are normal . The manager interface ior elemen ts aligne d anatom ically . Reacti ve change s are noted at the dens correl ate for Page 1 of 2 [facility] Ingrid lopez Name: KATHIE WILDER Access ion #: [id number] Sex: F : 1939 4 Exam Date: 023 3:44 PM Exam Name: XR C SPINE 2-3V Admitt ing Diagno sis(es ): sympto matolo gy, consid er MRI. If clinic al sympto ms persis t or worsen , then follow -up x-ray is recomm ended in 5-7 days. IMPRES ANNEMARIE: Zygoap ophyse al degene rative , hypert rophic change s. Multil evel degene rative change s. Consid er MRI, see above. Create d and electr onical ly signed by: Francisco subramanian MD Signed Date: 6:57 PM (CT) Dictat ed by: Francisco subramanian MD DD: 023 6:57 PM (CT) DT: 023 6:57 PM (CT) Page 2 of [address] (Imaging) [address] [place], [address], 12/27/2022 15:48:06 12/26/19 23 XR, cervi bob spine , 2 or 3 view [facility] [address] [place] [address] Ingrid t Name: KATHIE WILDER Access ion #: [id number] Sex: F : 1939 4 Locati on: RA2 Attend ing Physic dena: ELKHAT IB, RUNDA Orderi ng Physic dena: ELKHAT IB, RUNDA Exam Date: 023 3:44 PM Exam Name: XR C SPINE 2-3V Admitt ing Diagno sis(es ): RADIOL OGY REPORT - FINAL EXAM: XR C SPINE 2-3V HISTOR Y: pain COMPAR ROSIE: None Availa ble. TECHNI QUE: AP, latera l, and AP open-m outh odonto id images are evalua marcellus. FINDIN GS: Develo pment is normal . Verteb ral bodies demons trate normal alignm ent and height . Interv ertebr al disc spaces are remark able for multil evel degene rative change s greate st at the C4-5 and C5-6 level. Zygoap ophyse al joint hypert rophic change s are noted at the C2-3 throug h C7-T1 disc space levels . The prever tebral soft tissue s are normal . The manager interface ior elemen ts aligne d anatom ically . Reacti ve change s are noted at the dens correl ate for Page 1 of 2 [facility] t Name: KATHIE WILDER Access ion #: [id number] Sex: F : 1939 4 Exam Date: 3:44 PM Exam Name: XR C SPINE 2-3V Admitt ing Diagno sis(es ): sympto matolo gy, consid er MRI. If clinic al sympto ms persis t or worsen , then follow -up x-ray is recomm ended in 5-7 days. IMPRES ANNEMARIE: Zygoap ophyse al degene rative , hypert rophic change s. Multil evel degene rative change s. Consid er MRI, see above. Create d and electr onical ly signed by: Francisco subramanian MD Signed Date: 6:57 PM (CT) Dictat ed by: Francisco subramanian MD DD: 6:57 PM (CT) DT: 6:57 PM (CT) Page 2 of [address] (Imaging) [address] [place], [address], 12/27/2022 15:48:07 12/26/19 23 12/25/2022 XR, cervi bob spine , 2 or 3 view No observ ation record ed. [email or web address] [facility] [address] , [place], [address], 12/26/2022 13:15:19 01/03/20 23 MRI, cervi bob spine , w/o contr ast [facility] [place] [address], [place] [address] Patiludin t Name: KATHIE WILDER Access ion #: [id number] Sex: F : 1939 0 Locati on: RA2 Attend ing Physic dena: ELBRYANTAT IB, RUNDA Orderi ng Physic dena: ELKHAT IB, RUNDA Exam Date: 023 9:33 AM Exam Name: MRI C SPINE WO Admitt ing Diagno sis(es ): RADIOL OGY REPORT - FINAL EXAM: MRI C SPINE WO HISTOR Y: 82-yea r-old female with neck pain, limite d range of motion , left upper extrem ity pain and tingli ng, possib le liftin g injury 2 weeks ago. COMPAR ROSIE: Radiog raphs dated 2022. TECHNI QUE: Multip lanar multis equenc e noncon trast MR images of the cervic al spine were perfor med. FINDIN GS: No fractu re or listhe sis in the cervic al spine. 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 No eviden ce of cerebe llar tonsil lar ectopi a. No abnorm al signal in the cervic al spinal cord. Page 1 of 3 [facility] Patiludin t Name: KATHIE WILDER Access ion #: [id number] Sex: F : 1939 0 Exam Date: 023 9:33 AM Exam Name: MRI C SPINE WO Admitt ing Diagno sis(es ): C2-C3: No signif icant discop athy or spinal canal stenos is. There is bilate ral facet hypert rophy. There is mild bilate ral neural forami nal stenos is. C3-C4: No signif icant discop athy or spinal canal stenos is. There is bilate ral facet hypert rophy. There is modera te right and mild left neural forami nal stenos is. C4-C5: There is mild loss of disc height . There is a circum ferent ial broad disc bulge with endpla te hypert rophy. The AP dimens ion of the spinal canal measur es 8.1 mm. No signif icant mass effect on the cervic al spinal cord. There is bilate ral facet hypert rophy. There is mild bilate ral neural forami nal stenos is. C5-C6: There is loss of disc height . There is a circum ferent ial broad disc bulge with endpla te hypert rophy, most promin ent in the forami nal region s. The AP dimens ion of the spinal canal measur es 9 mm. No signif icant mass effect on the cervic al spinal cord. There is bilate ral facet and uncina te proces s hypert rophy. There is modera te bilate ral neural forami nal stenos is. C6-C7: There is a circum ferent ial broad disc bulge with endpla te hypert rophy, most promin ent centra lly. There is mild mass effect on the anteri or margin of the cervic al spinal cord. The AP dimens ion of the spinal canal measur es 7.6 mm. There is bilate ral facet hypert rophy and left uncina te proces s hypert rophy. There is mild right and modera te left neural forami nal stenos is. IMPRES ANNEMARIE: 1. No fractu re of the cervic al spine. 2. 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 There is mild mass effect on the anteri or margin of the cervic al spinal cord at C6-C7. . 3. 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 These findin gs may corres pond to right upper extrem ity radicu lar sympto ms in the C4 and C6 nerve root distri bution s, left upper extrem ity radicu lar sympto ms in the C6 and C7 nerve root distri bution s. Create d and electr onical ly signed by: Kelvin suggs MD Signed Date: 8:48 AM (CT) Dictat ed by: Kelvin suggs MD DD: 8:48 AM (CT) DT: 8:48 AM (CT) Page 3 of 3 [email or web address] [facility] (Imaging) [address] [place], [address], 01/02/2023 10:47:54 01/03/20 23 MRI, cervi bob spine , w/o contr ast [facility] [address] [place] [address] Patien t Name: KATHIE WILDER Access ion #: [id number] Sex: F : 1939 0 Locati on: RA2 Attend ing Physic dena: CLARISA SAMUEL, RUNDA Orderi ng Physic dena: ELDANUTA IB, RUNDA Exam Date: 9:33 AM Exam Name: MRI C SPINE WO Admitt ing Diagno sis(es ): RADIOL OGY REPORT - FINAL EXAM: MRI C SPINE WO HISTOR Y: 82-yea r-old female with neck pain, limite d range of motion , left upper extrem ity pain and tingli ng, possib le liftin g injury 2 weeks ago. COMPAR ROSIE: Radiog sawyer dated 2022. TECHNI QUE: Multip lanar multis equenc e noncon trast MR images of the cervic al spine were perfor med. FINDIN GS: No fractu re or listhe sis in the cervic al spine. 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 No eviden ce of cerebe llar tonsil lar ectopi a. No abnorm al signal in the cervic al spinal cord. Page 1 of 3 [facility] Name: KATHIE WILDER Access ion #: [id number] Sex: F : 1939 0 Exam Date: 023 9:33 AM Exam Name: MRI C SPINE WO Admitt ing Diagno sis(es ): C2-C3: No signif icant discop athy or spinal canal stenos is. There is bilate ral facet hypert rophy. There is mild bilate ral neural forami nal stenos is. C3-C4: No signif icant discop athy or spinal canal stenos is. There is bilate ral facet hypert rophy. There is modera te right and mild left neural forami nal stenos is. C4-C5: There is mild loss of disc height . There is a circum ferent ial broad disc bulge with endpla te hypert rophy. The AP dimens ion of the spinal canal measur es 8.1 mm. No signif icant mass effect on the cervic al spinal cord. There is bilate ral facet hypert rophy. There is mild bilate ral neural forami nal stenos is. C5-C6: There is loss of disc height . There is a circum ferent ial broad disc bulge with endpla te hypert rophy, most promin ent in the forami nal region s. The AP dimens ion of the spinal canal measur es 9 mm. No signif icant mass effect on the cervic al spinal cord. There is bilate ral facet and uncina te proces s hypert rophy. There is modera te bilate ral neural forami nal stenos is. C6-C7: There is a circum ferent ial broad disc bulge with endpla te hypert rophy, most promin ent centra lly. There is mild mass effect on the anteri or margin of the cervic al spinal cord. The AP dimens ion of the spinal canal measur es 7.6 mm. There is bilate ral facet hypert rophy and left uncina te proces s hypert rophy. There is mild right and modera te left neural forami nal stenos is. IMPRES ANNEMARIE: 1. No fractu re of the cervic al spine. 2. 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 There is mild mass effect on the anteri or margin of the cervic al spinal cord at C6-C7. . 3. 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 These findin gs may corres pond to right upper extrem ity radicu lar sympto ms in the C4 and C6 nerve root distri bution s, left upper extrem ity radicu lar sympto ms in the C6 and C7 nerve root distri bution s. Create d and electr onical ly signed by: Kelvin suggs MD Signed Date: 8:48 AM (CT) Dictat ed by: Kelvin suggs MD DD: 8:48 AM (CT) DT: 8:48 AM (CT) Page 3 of [address] (Imaging) [address] [place], [address], 01/02/2023 10:47:54 01/03/20 23 01/01/2023 MRI, cervi bob spine , w/o contr ast No observ ation record ed. [email or web address] [facility] [place] , [place], [address], 01/02/2023 10:43:00 Result Notes None recorded. Problems Name Problem SNOMED Code Status Onset Date Resolution Date Notes Provider Name and Address Organization Details Recorded Time Disorder of shoulder 089965430 Active Not Available [facility] 3 07:00:21 Abdominal pain 96537907 Active Not Available [facility] 3 07:00:21 Paroxysmal atrial fibrillation 996217931 Active 2021 Not Available [facility] 3 07:00:22 Arthritis 1583949 Active Not Available [facility] 3 07:00:22 Disorder of vitamin B12 552424805 Active Not Available [facility] 3 07:00:22 Osteoarthriti s 292042225 Active Not Available [facility] 3 07:00:22 Hypothyroidis m 79666589 Active Not Available [facility] 3 07:00:22 Shoulder pain 26947295 Active Not Available [facility] 3 07:00:22 Hyperlipidemi a 74374073 Active Not Available [facility] 3 07:00:22 Disorder of bursa of shoulder region 40140181 Active Not Available [facility] 3 07:00:22 Fatigue 04985850 Active Not Available [facility] 3 07:00:22 Neck pain 79939733 Active 2022 Not Available [facility] 3 07:00:22 Backache 534647863 Active 2022 Not Available [facility] 3 07:00:21 External hemorrhoids 10821742 Active 2022 Not Available [facility] 3 07:00:21 Lumbar radiculopathy 100713778 Active 2022 Not Available [facility] 3 07:00:21 Cervical radiculopathy 87174718 Active 2022 Not Available [facility] 3 07:00:22 Lumbar spondylosis 129764651 Active 2022 Not Available [facility] 3 07:00:21 Malaise and fatigue 406131952 Active 2022 Not Available [facility] 3 07:00:22 Impaired fasting glycemia 710118791 Active 2022 Not Available [facility] 3 07:00:22 Vitamin D deficiency 28185031 Active 2022 Not Available [facility] 3 07:00:22 Low back pain 888709005 Active 2022 Not Available [facility] 3 07:00:22 Left upper quadrant pain 222983502 Active 2022 Cornelia Alston MD [address], [address], [place], [address] , [employer] 3 13:07:33 Loss of hair 345105978 Active 2022 Cornelia Alston MD [address], [address], [place], [address] , [employer] 3 13:08:11 Atrial fibrillation 47619622 Active 2022 Cornelia Alston MD [address], [address], [place], [address] , [employer] 3 13:10:46 Alcohol dependence 53575816 Active 2022 Cornelia Alston MD [address], [address], [place], [address] , [employer] 3 13:11:56 Blepharitis 63335773 Active 2022 Cornelia Alston MD [address], [place], [address] , [employer] 3 13:12:14 Muscle strain 54135098 Active 2022 MADDY Trejo [address], [address], [place], [address] , [employer] [facility] 12:39:11 Problem Notes None recorded. Procedures Surgical History Date Name Laterality Status Provider Name and Address Organization Details Recorded Time [facility] Practice Trigger Point Injection completed Cornelia Alston MD [address], [address], [place], [address], [employer] [facility] 12/25/2022 16:21:15 Carpal tunnel surgery completed Not Available [facility] 12/05/2022 13:11:24 Meniscal trnspl knee w/scpe completed Not Available [facility] 12/05/2022 13:11:24 Imaging Results Imaging Date Name Status LastModified by Organiz ation Details LastModified Time 12/25/2022 XR, cervical spine, 2 or 3 view completed [address] (Imaging) [address] [place], [address], 12/27/2022 15:48:06 12/25/2022 XR, cervical spine, 2 or 3 view completed [address] (Imaging) [address] [place], [address], 12/27/2022 15:48:07 12/25/2022 XR, cervical spine, 2 or [address] view completed [address] [facility] [address] [place] [address], [place], [address], 12/26/2022 13:15:19 01/02/2023 MRI, cervical spine, w/o contrast completed [address] (Imaging) [address] [place], [address], 01/02/2023 10:47:54 01/02/2023 MRI, cervical spine, w/o contrast completed [address] (Imaging) [address] [place], [address], 01/02/2023 10:47:54 01/01/2023 MRI, cervical spine, w/o contrast completed [email or web address] [facility] [address] [place] [address] , [place], [address], 01/02/2023 10:43:00 Procedure Notes None recorded. Medical Equipment None Reported. Allergies Allergen ID Allergen Name Allergen Category Reaction Reaction Severity Criticality Documentation Date Start Date Code Code System Note Provider Name and Address Organization Details Recorded Time 98087 Substance with sulfonami de structure and antibacte rial mechanism of action (substanc e) medicatio n Not available Not available Not available 12/05/2022 28289 8003 SNOMED Not Available [facility] 3 13:13:42 Medications Name Sig Start Date Stop Date Status Note LastModified by Organization Details LastModified Time celecoxib 200 mg capsule active Not Available Not Available Not Available cyclobenz aprine 10 mg tablet TAKE 1/2 TABLET BY MOUTH 3 TIMES A DAY NEEDED FOR MUSCLE SPASM 02/13 completed Not Available Not Available Not Available azithromy delia 250 mg tablet TAKE 2 TABLETS BY MOUTH ON DAY 1 AND THEN TAKE 1 TABLET BY MOUTH ONCE A DAY ON DAY 2 THROUGH DAY 5 10/09 completed Not Available Not Available Not Available hydrocodo ne 5 mg-acetam inophen 325 mg tablet TAKE 1 TO 2 TABLETS BY MOUTH EVERY 4 HOURS NEEDED FOR PAIN . DO NOT EXCEED 6 PER 24 HOURS 07/12 completed Not Available Not Available Not Available prednison e 20 mg tablet PLEASE SEE ATTACHED FOR DETAILED DIRECTIO NS active Not Available Not Available No t Available ciproflox acin 500 mg tablet Take 1 tablet every 12 hours by oral route. 01/16 completed Not Available Not Available Not Available tramadol 50 mg tablet Take 1-2 TABLET EVERY 6 HOURS by oral route. active Not Available Not Available No t Available simvastat in 40 mg tablet TAKE 1 TABLET BY MOUTH DAILY 09/18 completed Not Available Not Available Not Available levothyro xine 75 mcg tablet Take 1 tablet every day by oral route in the morning for 100 days. active Not Available Not Available No t Available levothyro xine 88 mcg tablet Take 1 tablet every day by oral route. 07/26 completed Not Available Not Available Not Available levothyro xine 50 mcg tablet TAKE 1 TABLET BY MOUTH ONCE DAILY active Not Available Not Available No t Available simvastat in 20 mg tablet one po daily active Not Available Not Available No t Available metoprolo l tartrate 50 mg tablet active Not Available Not Available Not Available diclofena c sodium 75 mg tablet,de layed release TAKE 1 TABLET BY MOUTH TWICE A DAY NEEDED 04/13 completed Not Available Not Available Not Available monteluka st 10 mg tablet TAKE 1 TABLET BY MOUTH ONCE DAILY active Not Available Not Available No t Available hydroxyzi ne HCl 25 mg tablet 10/09 completed Not Available Not Available Not Available metoprolo l succinate ER 25 mg tablet,ex tended release 24 hr 12/25 completed Not Available Not Available Not Available methylpre dnisolone 4 mg tablets in a dose pack TAKE BY MOUTH DIRECTED ON INSIDE OF PACKAGE 02/13 completed Not Available Not Available Not Available ondansetr on 4 mg disintegr ating tablet active Not Available Not Available Not Available fluticaso ne propionat e 50 mcg/actua tion nasal spray,osvaldo pension [place] 1 spray every day by intranas al route. active Not Available Not Available No t Available dicyclomi ne 10 mg capsule active Not Available Not Available Not Available naproxen 500 mg tablet 10/09 completed Not Available Not Available Not Available amoxicill in 875 mg-potass ium clavulana te 125 mg tablet TAKE 1 TABLET BY MOUTH EVERY 12 HOURS 07/12 completed Not Available Not Available Not Available neomycin 3.5 mg/g-poly myxin B 10,000 unit/g-de xameth 0.1 % eye oint APPLY TO RIGHT EYE THREE TIMES DAILY FOR 7 DAYS FOR INFECTIO N active Not Available Not Available No t Available cyclobenz aprine 5 mg tablet 06/24 completed Not Available Not Available Not Available metoprolo l tartrate 25 mg tablet Take 2 tablets twice a day by oral route. active Not Available Not Available No t Available chlorhexi dine gluconate 0.12 % mouthwash 06/24 completed Not Available Not Available Not Available Euflexxa 10 mg/mL (mw 2.4-3.6 million) intra-art icular syringe Injectio ns given in the office by the doctor 09/09 completed [facility]: [id number] 001 Not Available Not Available Not Available Calcium 500 with zinc 11/05 completed Not Available Not Available Not Available B-12 2019 active Not Available Not Available Not Avai lable MoviPrep 100 gram-7.5 gram-2.69 1 gram oral powder packet active Not Available Not Available Not Available Voltaren 1 % topical gel APPLY 2 GRAM TO THE AFFECTED AREA(S) BY TOPICAL ROUTE 2-3 times per day. active Not Available Not Available No t Available Eliquis 5 mg tablet Take 1 tablet twice a day by oral route. 02/13 completed Not Available Not Available Not Available Eliquis 2.5 mg tablet active Not Available Not Available Not Available vitamin B12 1,000 mcg-folic acid 400 mcg sublingua l tablet Place by sublingu al route. 04/20 completed Not Available Not Available Not Available Fluzone High-Dose 5216-7206 (PF) 180 mcg/0.5 mL intramusc ular syringe ADM 0.5ML UTD active Not Available Not Available No t Available Fluvirin 3298-5086 45 mcg (15 mcg x 3)/0.5 mL intramusc ular suspensio n INJECT 0.5 ML INTRAMUS CULARLY DIRECTED . active Not Available Not Available No t Available Procto-Me d HC 2.5 % topical cream perineal applicato r APPLY A THIN LAYER OF CREAM RECTALLY TO AFFECTED AREA 2-4 TIMES DAILY 02/13 completed Not Available Not Available Not Available Fluzone High-Dose (PF) 180 mcg/0.5 mL intramusc ular syringe ADM 0.5ML IM UTD 01/10 completed Not Available Not Available Not Available Fluzone High-Dose (PF) 180 mcg/0.5 mL intramusc ular syringe active Not Available Not Available Not Available Fluzone High-Dose (PF) 180 mcg/0.5 mL intramusc ular syringe 01/16 completed Not Available Not Available Not Available Afluria Quad 60 mcg (15 mcg x 4)/0.5 mL intramusc ular susp. 07/30 completed Not Available Not Available Not Available Fluzone High-Dose Quad (PF) 240 mcg/0.7 mL IM syringe 09/09 completed Not Available Not Available Not Available Vitals Date Recorded Body height Body mass index (BMI) Body weight Body temperature Heart rate Oxygen saturation Oxygen saturation in Arterial blood by Pulse oximetry Systolic blood pressure Diastolic blood pressure Provider Name and Address Organization Details Last Updated DateTime 3 149.86 cm 24.2 kg/m2 67709.0 8 g 98.2 [degF] 100 /min 97 % 97 % 140 mm[Hg] 80 mm[Hg] Milagro Mitchell [place] [facility] [employer] [facility] 3 15:57:57 Date Recorded Body height Body mass index (BMI) Body weight Body temperature Heart rate Oxygen saturation Oxygen saturation in Arterial blood by Pulse oximetry Systolic blood pressure Diastolic blood pressure Provider Name and Address Organization Details Last Updated DateTime 3 149.86 cm 23.8 kg/m2 78068.9 g 97.8 [degF] 58 /min 96 % 96 % 138 mm[Hg] 80 mm[Hg] Milagro Mitchell [place] [facility] [employer] [facility] 3 09:45:41 Date Recorded Body height Body mass index (BMI) Body weight Body temperature Heart rate Oxygen saturation Oxygen saturation in Arterial blood by Pulse oximetry Systolic blood pressure Diastolic blood pressure Provider Name and Address Organization Details Last Updated DateTime 3 149.86 cm 23.8 kg/m2 87496.9 g 97.2 [degF] 70 /min 98 % 98 % 106 mm[Hg] 72 mm[Hg] Asuncion perera CMA [facility] [employer] [facility] 3 12:10:52 Date Recorded Body height Body mass index (BMI) Body weight Body temperature Heart rate Oxygen saturation Oxygen saturation in Arterial blood by Pulse oximetry Systolic blood pressure Diastolic blood pressure Provider Name and Address Organization Details Last Updated DateTime 3 149.86 cm 24.2 kg/m2 75699.0 8 g 97.4 [degF] 67 /min 98 % 98 % 124 mm[Hg] 76 mm[Hg] Roseanne Hauser MA [facility] [employer] [facility] 3 12:51:49 Date Recorded Body height Body mass index (BMI) Body weight Body temperature Heart rate Oxygen saturation Oxygen saturation in Arterial blood by Pulse oximetry Systolic blood pressure Diastolic blood pressure Provider Name and Address Organization Details Last Updated DateTime 3 149.86 cm 24.2 kg/m2 15107.0 8 g 97.4 [degF] 76 /min 98 % 98 % 122 mm[Hg] 82 mm[Hg] Roseanne Hauser [place] [facility] 12:21:41 Social History Question Answer Notes LastModified by Organizat ion Details LastModified Time Tobacco Smoking Status Never Smoker Not Available [facility] 12/05/2022 13:11:23 What Is Your Level Of Alcohol Consumption? Occasional [id number] Information not available 12/05/2022 In The 14 Days Before Symptom Onset, Have You Had Close Contact With A Laboratory-confirm ed COVID-19 While That Case Was Ill? No [id number] Information not available 12/05/2022 In The 14 Days Before Symptom Onset, Have You Had Close Contact With A Person Who Is Under Investigation For COVID-19 While That Person Was Ill? No [id number] Information not available 12/05/2022 Have You Recently Traveled Abroad? No [id number] Information not available 12/05/2022 Sex: Unknown Functional Status None recorded. Mental Status None recorded. Family History Relationship Description Onset Age of this Age Resolved Age Notes LastModified by Organization Details LastModified Time Mother Family history of malignant neoplasm [id number] Not available 12/05/2022 13:11:24 Father Diabetes mellitus [id number] Not available 12/05/2022 13:11:24 Father Heart disease [id number] Not available 12/05/2022 13:11:24 Unspecified Relation Family history of malignant neoplasm [id number] Not available 12/05/2022 13:11:24 Notes:NO ENT Medical History Condition Response MRSA N SLEEP APNEA N ALLERGIES/HAYFEVER N LUNG DISEASE/DISORDER N INSOMNIA N HISTORY OF DRUG ABUSE N RADIATION / CHEMOTHERAPY N COPD N HIGH CHOLESTEROL / HYPERLIPIDEMIA Y HYPERTHYROIDISM N BLOOD DISEASES N EAR OR HEARING PROBLEMS N HYPOTHYROIDISM Y SHINGLES N DEPRESSION (INCLUDING POST ) N HAVE YOU BEEN HOSPITALIZED OR [facility] IN THE PAST YEAR ? Y STROKE/TIA N ULCERS N OBESITY N ANEURYSM N HISTORY WITH COMPLICATIONS WITH ANESTHES IA ? N NO SIGNIFICANT PAST MEDICAL HISTORY N USE OF BLOOD THINNERS Y DIABETES, TYPE N PARATHYROID DISEASE N ENT N SEASONAL ALLERGIES Y HEARTBURN / REFLUX N HEPATITIS / LIVER DISEASE N SLEEP DISORDER N HEADACHES/MIGRAINES N SEIZURES/EPILEPSY N CHF N PACEMAKER N DIZZINESS N HEART DISEASE/HEART PROBLEMS N AIDS/HIV N FRACTURES N HYPERTENSION N CANCER: SPECIFY N TOURETTE'S N BLOOD TRANSFUSION N ANESTHESIA COMPLICATIONS N ANEMIA/BLOOD DISORDER N CHRONIC EAR INFECTIONS N TUBERCULOSIS N Gynecological HistoryNo gynecological history recorded. Obstetrics History GPAL:G 0 P 0 0 0 0 Past Encounters Encounter ID Performer Location Encounter Start Date Encounter Closed Date Diagnosis/Indication Diagnosis SNOMED-CT Code Diagnosis ICD10 Code Diagnosis Note [id number] [facility] Ofelia hussein [address] [place] [address] 12/19/2020 00:00:00 12/19/2020 22:02:42 [id number] [facility] [address] [place] [address] 01/19/2021 00:00:00 01/19/2021 11:56:20 [id number] [facility] Ofelia hussein [facility] [address] [place] [address] [place] [address] 06/21/2021 00:00:00 06/21/2021 20:31:52 [id number] [facility] Ofelia hussein [facility] [place] [address] [place] [address] 06/27/2021 00:00:00 06/27/2021 14:08:11 [id number] [facility] Ofelia hussein [facility] [address] [place] [address] 07/12/2021 00:00:00 07/12/2021 21:38:20 [id number] [facility] [place] [address] [place] [address] 09/21/2021 00:00:00 09/21/2021 11:44:16 [id number] [facility] [place] [address] [place] [address] 10/03/2021 00:00:00 10/03/2021 11:35:29 [id number] [facility] [address] [place] [address] [place] [address] [place] [address] 07/26/2022 00:00:00 07/26/2022 12:14:21 [id number] Cornelia Alston MD [facility] [place] [address] [place] [address] [place] [address] [place] [address] 12/25/2022 15:49:04 12/25/2022 16:19:44 Neck pain 76301468 M54.2 Avoid NSAIDs because she is on eliquis. Backache 058532087 M54.9 Trigger points x 2 given External hemorrhoids 239 39932 K64.4 Plenty of fluids stay regular with BMs. [id number] Cornelia Alston MD [facility] [place] [address] [place] [address] [place] [address] [place] [address] 02/13/2023 09:41:40 02/13/2023 10:10:53 Malaise and fatigue 061037060 R53.83 Impaired f asting glycemia 941429819 R73.01 Vitamin D deficiency 347 43592 E55.9 Cervical radiculopathy 10703668 M54.12 Continue PT it is helping. [id number] Cornelia Alston MD [facility] Max[place] [address] [place] [address] [place] [address] [place] [address] 06/28/2023 12:05:37 07/01/2023 13:29:19 Cervical radiculopathy 69230633 M54.12 Continue home PT it is helping. Fatigue 64955389 R53.83 Low back pain 907424986 M54.50 Stretching and ice/heat analgesic rub. [id number] Cornelia Alston MD [facility] Ofelia hussein [address] [place] [address] [place] [address] [place] [address] 08/26/2023 12:36:36 08/26/2023 13:47:46 Left upper quadrant pain 512880360 R10.12 Use heat to area could be muscular Loss of hair 725568251 L 65.9 Atrial fibrillation 4943 6004 I48.91 Alcohol dependence 60106 003 F10.20 Suggest counseling and group counseling Blepharitis 61090807 H01 .009 Warm compresses to eyes. [id number] MADDY Trejo [facility] [address] [address] [place] [address] 09/18/2023 12:10:47 09/18/2023 12:46:59 Muscle strain 42944654 T14.8XXA Health Concerns Section Related Observation LastModified by Organization Detai ls LastModified Time None Recorded Concern Status LastModified by Organization Details LastModified Time None Recorded Advance Directives Directive None Recorded Payers Encounter Date Sequence Insurance Name Policy Number Policy Salguero Covered Member ID Salguero Member ID Guarantor Name 12/25/2022 1 [facility] - [employer] - [employer] - MEDICARE COMPLETE PLAN 2 (MEDICARE REPLACEMENT HMO) [id number] Kathie Wilder [id number] Kathie Wilder 02/13/2023 1 [facility] - [employer] - [employer]URE [employer] - MEDICARE COMPLETE PLAN 2 (MEDICARE REPLACEMENT HMO) [id number] Kathie Wilder [id number] Kathie Wilder 06/28/2023 1 [facility] - [employer] - [employer] - MEDICARE COMPLETE PLAN 2 (MEDICARE REPLACEMENT HMO) [id number] Kathie Wilder [id number] Kathie Wilder 08/26/2023 1 [facility] - [employer] - [employer] - MEDICARE COMPLETE PLAN 2 (MEDICARE REPLACEMENT HMO) [id number] Kathie Wilder [id number] -00 Kathie Wilder 09/18/2023 1 [facility] - [employer] - [employer]URE [employer]IZ[employer] - MEDICARE COMPLETE PLAN 2 (MEDICARE REPLACEMENT HMO) [id number] Kathie Wilder [id number] Kathie Wilder Notes Date Note Type Note Provider Name and Address Organization Details Recorded Time 12/25/2022 text/html Here todays gett ing pain in back on left side. It is on left side of neck and shoots down arm and fingers are tingling. Had an EKG. Was given a muscle relaxer and prednisone and no help. Pain is worse today. She can sleep.Pt came back after appt. stating she went to urinate and there was blood all in the toilet. She feels it is coming from her rectum. Has had this before. Cornelia Alston MD [address], [facility] [address], [place], [address], [facility] [employer] 12/25/2022 17:07:48 02/13/2023 text/html Here today. c/o fatigue. 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 Is doing PT and it is helping. Pain in left arm to the hand. Wants to consider gabapentin.Has extreme fatigue will nap in the afternoon. Needs BW ordered. Cornelia Alston MD [address], [facility] [address], [place], [address], [facility] [employer] 02/13/2023 21:21:51 06/28/2023 text/html Here today for cervical radiculopathy and did PT and this helped.Now has pain in L/S spine. Had therapy. Taking aleve and helps. It has gotten better. Went to neurosurgeon and was told it was not bad. He gave her steroids which did not help. PT has helped. If had to have BM the pain was worse. Gets tingling and numbness down legs.Has been very tired and had thyroid meds adjusted and has become more fatigued. Has hair loss. Needs repeat TSH and T4 levels. Cornelia Alston MD [address], [facility] [address], [place], [address], [facility] [employer] 06/28/2023 17:40:04 08/26/2023 text/html Here today think s has an eye infection has drainage and foggy vision. Her eyelids are puffy denies eye painWas at back tender a couple of weeks ago and recommended to see me for hair loss. Her hair is thinning and wants to know if there is something to do.Has LUQ pain and no trauma. It just hurts at times on the left upper quadrant.Has been drinking too much and passed out. Wants counseling and group support. Her family is concerned with her drinking she usually drinks 2 glasses of wine now but was drinking more. She had an intervention with family members. Cornelia Alston MD [address] [address], [place], [address], [facility] [employer] [facility] [employer] [facility] 08/26/2023 20:07:17 09/18/2023 text/html muscle strain MADDY Trejo [address] [address], [place], [address], [employer] [facility] 09/30/2023 15:51:09 OBGyn Episode No OBEpisode recorded.
--- OUTSIDE RECORDS SUMMARY | 2024-12-24 09:10 | XMS_ITS | Referral Summary ---
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 Name Role Phone Sasha Jacobo DO Primary Care Provider [phone] Allergies No known active allergies Medications levothyroxine [...] thyroiditis 02/20/2014 Overview (01/11/2017): CHR LYMPHOCYT THYROIDIT Social History Tobacco Use Types Packs/Day Years Used Date Smoking Tobacco: Never Smokeless Tobacco: Never Tobacco Cessation:Counseling Given: Not Answered Alcohol Use Standard Drinks/Week Comments Yes 0 (1 standard drink = 0.6 oz pur e alcohol) Comments Unknown Sex and Gender Information Value Date Recorded Sex Assigned at Not on file Legal Sex Female 11:11 AM [employer] Gender Identity Not on file Sexual Orientation Not on file Last Filed Vital Signs Vital Sign Reading Time Taken Comments Blood Pressure 142/86 09/09/2024 11:30 AM [employer] Pulse 69 09/09/2024 11:30 AM [employer] Temperature 36.4 C (97.6 F) 07/03/2021 2:47 PM CDT Respiratory Rate - - Oxygen Saturation 99% 09/09/2024 11:30 AM [employer] Inhaled Oxygen Concentration - - Weight 53.1 kg (117 lb) 09/09/2024 11:30 AM [employer] Height 149.9 cm (4' 11 ) 09/09/2024 11:30 AM [employer] Body Mass Index 23.63 09/09/2024 11:30 AM [employer] Plan of Treatment [place] [address] [facility] MDCR HMO REF MEDICARE SOLUTIONS MEDICARE SOLUTIONS Care Teams Boring Machine Set Up Operator Jig Relationship Specialty Start Date End Date Sasha Jacobo DO [address] [place] [address] [place] [address] PCP - General Family Medicine 09/09/24
[2024-12-24] MEDS: LACTATED RINGERS 1,000 ML 30 ML IV CONT (09:16)
[2024-12-24] MEDS: ceFAZolin SODIUM 2 GM/20 ML SW SYRINGE IV PUSH (09:50)
[2024-12-24] MEDS: LIDO 1%/EPINEPHRINE 1:100,000 10 ML VIAL 4 ML INFILTRATE (09:59)
[2024-12-24] MEDS: BUPivacaine HCL 0.5% PF 30 ML VIAL 4 ML INFILTRATE (09:59)
[2024-12-24 10:20] VITALS: BP 102/53; PULSE 64; RESP 14; O2SAT 100
--- NOTE | 2024-12-24 10:29 | WPDANESPN ---
Anes - Prog Note Post-Op Date/Time: 12/24/24 10:29 Cardiovascular status: normal Respiratory status: normal Airway patency: baseline Mental status: baseline Post-Op hydration status: normal Vital Signs: Last Vital Signs Temp 36.6 C 12/24/24 09:07 Pulse 64 12/24/24 10:20 Resp 14 12/24/24 10:20 BP 102/53 L 12/24/24 10:20 Pulse Ox 100 12/24/24 10:20 O2 Del Method Room Air 12/24/24 10:20 Pain Score (VAS): 0 Post-procedural complaints: none Patient Feedback: Patient satisfied with anesthetic care. Other Findings: Patient vital signs back to baseline. Patient denies nausea and vomiting. Patient's pain under control. Patient OK for discharge.
[2024-12-24 10:30] VITALS: BP 123/63; PULSE 64; RESP 14; O2SAT 100
[2024-12-24 10:50] VITALS: BP 137/73; PULSE 72; RESP 15; O2SAT 100
[2024-12-24 11:00] VITALS: BP 132/73; PULSE 64; RESP 14; O2SAT 100
== END 2024-12-24 11:04 | disposition home or self-care (01) ==
LOC: ASC 08:54
PROVIDERS: PCP Nurse Practitioner; Visit Provider Plastic Surgery
PROC: 01N54ZZ Release Median Nerve, Percutaneous Endoscopic Approach (ICD-10-PCS; CPT 29848; principal; 2024-12-24 10:15)
PROC: (CPT 64718; 2024-12-24 10:15)
DX: G56.02 Carpal tunnel syndrome, left upper limb (principal); G56.22 Lesion of ulnar nerve, left upper limb
CPT/HCPCS: 29848; 64718